=== PATIENT | male | born 1950 | race Asian ===

== ENCOUNTER 2019-05-30 10:18 | Inpatient (IN) | payer OTHER ==
[~2019-05-30] VITALS: Ht 165.1 cm; Wt 78.5 kg
[2019-05-30 10:19] VITALS: BP 152/87
[2019-05-30] MEDS ORDERED: ELIQUIS5 MG PO (10:30)
[2019-05-30] MEDS ORDERED: K-DUR 20 MEQ T20 MEQ PO (10:31)
[2019-05-30] MEDS ORDERED: LISINOPRIL40 MG PO (10:32)
[2019-05-30] MEDS ORDERED: PRAVACHOL40 MG PO (10:33)
[2019-05-30] MEDS ORDERED: PLAVIX 75 MG TA75 M1 PO (10:33)
[2019-05-30] MEDS ORDERED: DOXAZOSIN MESYLA2 MG PO (10:33)
[2019-05-30] MEDS ORDERED: AMLODIPINE BESY10 MG PO (10:33)
[2019-05-30 10:47] LABS: ABSOLUTE NEUTROPHILS 15.9 thou/uL (1.4-8.2); BASOPHILS 0.2 % (0.0-2.0); HEMATOCRIT 41.9 % (42.0-52.0); HEMOGLOBIN 14.1 gm/dL (14.0-18.0); LYMPHOCYTES 4.8 % (24.0-44.0); MCH 29.6 pg (26.0-34.0); MCHC 33.7 g/dL (28.0-37.0); MCV 87.8 fL (80.0-100.0); MONOCYTES 5.1 % (1.0-8.0); PLATELET COUNT 159 thou/uL (150-400); POLYS 89.9 % (36.0-66.0); RBC 4.78 mil/uL (4.50-6.00); RDW 13.9 % (10.5-14.5); WBC 17.7 thou/uL (4.0-11.0)
[2019-05-30 10:56] LABS: CALCIUM 8.4 mg/dL (8.5-10.1); CREATININE 2.9 mg/dL (0.7-1.3)
[2019-05-30 11:02] LABS: ALBUMIN 3.8 g/dL (3.4-5.0); TOTAL BILIRUBIN 0.9 mg/dL (<0.1-1.0); TOTAL PROTEIN 7.2 g/dL (6.4-8.2)
[2019-05-30 11:12] LABS: POTASSIUM 4.9 mmol/L (3.5-5.1)
[2019-05-30 11:22] LABS: URINE BILIRUBIN NEGATIVE (Negative); URINE BLOOD NEGATIVE (Negative); URINE CLARITY CLEAR; URINE COLOR YELLOW; URINE GLUCOSE-RANDOM* NEGATIVE (Negative); URINE KETONES TRACE (Negative); URINE LEUKOCYTES-REFLEX NEGATIVE (Negative); URINE NITRITE-REFLEX NEGATIVE (Negative); URINE PROTEIN (DIPSTICK) 1+ (Negative); URINE SPECIFIC GRAVITY >= 1.030 (1.005-1.035); URINE UROBILINOGEN 0.2 E.U./dl (0.2-1.0)
[2019-05-30 11:33] LABS: AMORPHOUS URATES Moderate /LPF (None Seen); BACTERIA-REFLEX None Seen /HPF (None Seen); HYALINE CASTS 4-10 Moderate /LPF (None Seen); MUCUS 0-3 Light strn/LPF (None Seen); SQUAMOUS 0-3 Few /LPF (0-3); URINE RBC None Seen /HPF (0-2); URINE WBC-REFLEX None Seen /HPF (0-5)
[2019-05-30 13:13] VITALS: BP 149/75
[2019-05-30 13:20] VITALS: BP 149/75
[2019-05-30 13:55] VITALS: BP 176/91
[2019-05-30 14:31] VITALS: BP 162/99
--- NOTE | 2019-05-30 17:15 | NUR ---
PT ARRIVED ON UNIT APPROX 1400 FROM ED. ADMISSION COMPLETED. ASSESSMENT CHARTED. PT A&OX4. ASENCIO IN PLACE. NG TUBE ATTEMPED BUT PT DID NOT TOLERATE WELL, SO ICU CALLED FOR ASSISTANCE; WAITING FOR THEM NOW. NO C/O PAIN, BUT PT OCCASIONALLY GRIMACES AND HOLDS ABDOMEN. STILL NO BM AT THIS TIME. REFUSES PAIN MEDS AT THIS TIME. PT SBA D/T WEAKNESS. WILL CONTINUE TO MONITOR AND FOLLOW POC.
--- NOTE | 2019-05-30 17:54 | NUR ---
ATTEMPTED TO INSERT NG TUBE IN WITH CHARGE NURSE PRESENT, WITH 2 TRIES BOTH UNSUCCESSFUL WITH PT NOT TOLERATING WELL. TIME GIVEN TO PT TO RECOVER. CALLED ICU NURSE FOR ASSISTANCE, NG TUBE INSERTION ATTEMPTED 3 TRIES, ALL TRIES UNSUCCESSFUL DUE TO PT NOT BEING ABLE TO TOLERATE PROCEDURE. WILL GIVE PT TIME TO RECOVER PT WAS UPSET AND FATIGUED. PHYSCICIAN NOTIFIED, ORDERS RECEIVED FOR CHLORASEPTIC THROAT SPRAY, WILL PASS ON TO NOC NURSE REGARDING SITUATION.
[2019-05-30 19:40] VITALS: BP 148/84
[2019-05-30 20:47] LABS: ALBUMIN 3.6 g/dL (3.4-5.0); CALCIUM 7.9 mg/dL (8.5-10.1); CREATININE 2.7 mg/dL (0.7-1.3); POTASSIUM 5.3 mmol/L (3.5-5.1); TOTAL BILIRUBIN 1.5 mg/dL (<0.1-1.0); TOTAL PROTEIN 6.6 g/dL (6.4-8.2)
[2019-05-31 04:10] VITALS: BP 139/71
[2019-05-31 04:59] LABS: HEMATOCRIT 41.5 % (42.0-52.0); MCH 29.8 pg (26.0-34.0); MCHC 33.7 g/dL (28.0-37.0); MCV 88.6 fL (80.0-100.0); RBC 4.68 mil/uL (4.50-6.00); WBC 18.3 thou/uL (4.0-11.0)
--- NOTE | 2019-05-31 06:05 | NUR ---
PT UP TO BSC MULTIPLE TIMES TRYING TO HAVE A BM. ASENCIO IN PLACE AND WORKING WELL. NG 16 POLISH (70 CM) TUBE INSERTED WITH SUCCESS AND IS REMOVING SOME STOMACH FLUIDS. FOLLOWING POC WITH IVF/IVPB. PT DOES NOT LIKE THE NG TUBE AND ASKED IF IT CAN COME OUT, I SPOKE WITH HIM AND TOLD HIM THAT IS UP TO THE DR AND HIMSELF. HOURLY ROUNDING.
--- NOTE | 2019-05-31 06:10 | NUR ---
PT UP TO CHAIR FOR EARLY PART OF THE EVENING, AND THEN MOVED TO THE BED FOR A RESTFUL SLEEP. PT HAS NO COMPLAINTS. OXYGEN AT 5L NC. LABS CAME BACK WITH POTASSIUM AT 5.3 AGAIN. HOURLY ROUNDING.
[2019-05-31 07:54] VITALS: BP 149/89
[2019-05-31 10:10] LABS: CHOLESTEROL 124 mg/dL (<200); HDL CHOLESTEROL 49 mg/dL (>40); LDL CHOLESTEROL 65 mg/dL (<100); TC:HDL 2.5 Ratio (Not establshd); TRIGLYCERIDE 52 mg/dL (<150); VLDL 10 mg/dL (<40)
[2019-05-31] MEDS ORDERED: EMERGEN-C 500500 MG PO (11:00)
[2019-05-31 11:33] VITALS: BP 141/85
--- NOTE | 2019-05-31 14:19 | EKG ---
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[facility] : 1950 Requested By: Chester Palmer Order Number: [id number] MD: Oniel Dee Measurements Intervals [place] Rate: 106 P: 24 SC: 230 QRS: 68 QRSD: 103 T: 241 QT: 323 QTc: 429 Interpretive Statements Sinus tachycardia Prolonged SC interval Probable LVH with secondary repol abnrm No previous ECG available for comparison Electronically Signed On 05-31-2019 14:19:22 CDT by Oniel Dee [email or web address] <ELECTRONICALLY SIGNED> By: Oniel Dee MD, [facility] 05/31/19 1419 D: 090 1030 Oniel Dee MD, FACC /EPI
[2019-05-31 15:38] VITALS: BP 134/86
--- NOTE | 2019-05-31 18:22 | NUR ---
Patient's NG tube is curently under lower intermittent suction- it was draining greenish fluid this am and turned darker this afternoon- it appears the patient has fecal matter draining from his NG (brown solid particles in green fluid). No BM today. Patient's bowel sounds were hypoactive this am changing to absent bowel sounds this evening. Patient has gotten up several times this shift without summoning staff to assist him with his multiple tunes (NG, IV, Mann, O2), despite frequent reminders to call for assistance prior transferring. Patient denies any nausea and vomiting. Abdomen in very firm. NPO. VS stable. Patient is not progressing towards goals.
[2019-05-31 19:49] VITALS: BP 127/73
--- NOTE | 2019-06-01 00:46 | NUR ---
PT REQUESTED ASENCIO TO BE REMOVED. CALLED AND DISCUSSED MATTER WITH FARIBA AVILES. ASENCIO WAS IN DUE TO RETENTION. SPOKE TO PT ABOUT REMOVAL AND RETENTION ISSUES. WILL BLADDER SCAN Q6, IF ABOVE 400ML CALL PHYSCIAN. ASENCIO REMOVED AND PT IS HAPPY. WILL CONTINUE TO MONITOR.
[2019-06-01 04:09] VITALS: BP 147/84
--- NOTE | 2019-06-01 06:18 | NUR ---
BLADDER SCAN SHOWS 106 AT 0600. PT PULLED IV OUT AT 0545 DUE TO PT BEING IMPULSIVE AND NOT WAITING ON STAFF TO ASSIST TO BSC. ALSO PULLED OUT NG TUBE A CERTAIN LENGTH. REPLACED TO 65CM AND INTERMENT SUCTION RESUMED. FOLLOWING POC WITH IVF AND IVPB. HOURLY ROUNDING.
[2019-06-01 07:20] VITALS: BP 138/78
[2019-06-01 08:51] LABS: ABSOLUTE NEUTROPHILS 11.7 thou/uL (1.4-8.2); BASOPHILS 0.1 % (0.0-2.0); LYMPHOCYTES 4.5 % (24.0-44.0); MCH 29.9 pg (26.0-34.0); MCHC 33.5 g/dL (28.0-37.0); MCV 89.2 fL (80.0-100.0); MONOCYTES 8.5 % (1.0-8.0); PLATELET COUNT 112 thou/uL (150-400); POLYS 86.9 % (36.0-66.0); RBC 3.81 mil/uL (4.50-6.00); RDW 14.4 % (10.5-14.5); WBC 13.5 thou/uL (4.0-11.0)
[2019-06-01 08:54] LABS: HEMOGLOBIN 11.4 gm/dL (14.0-18.0)
[2019-06-01 09:11] LABS: CALCIUM 7.8 mg/dL (8.5-10.1); CREATININE 2.5 mg/dL (0.7-1.3); POTASSIUM 4.6 mmol/L (3.5-5.1); TOTAL BILIRUBIN 1.2 mg/dL (<0.1-1.0); TOTAL PROTEIN 6.4 g/dL (6.4-8.2)
[2019-06-01 10:32] VITALS: BP 138/78
--- NOTE | 2019-06-01 11:47 | HC ---
[facility] [place] [address] CONSULTATION Name: ALEX FERRER Room #: 437-P ADM IN M.R.#: [id number] Admission: 05/30/19 Attend Phys: Bimal Caldwell MD Discharge: Date of : 46 Report #: [id number] THIS REPORT FOR: //name// CC: Ron Lyon MD DATE OF SERVICE: 05/31/2019 HISTORY OF PRESENT ILLNESS: The patient is a 69-year-old male, began having nausea, vomiting, abdominal pain last Saturday, became more severe over the weekend. On admission through the Emergency Room, he was noted to have a significantly elevated lipase consistent with acute pancreatitis. Lipase was 8432. The patient and report no previous history of pancreatitis. He denies any significant alcohol use. There have been no new medications. No fevers or chills recently. No chest pain or shortness of breath. He has noted increasing abdominal distention, however, in the last few days and has not had a bowel movement since Saturday. Currently, he is not having any flatus. He has a nasogastric tube in place at this time. On admission, he underwent an ultrasound of the abdomen yesterday, on which the liver was normal in size. No evidence of intrahepatic or extrahepatic ductal dilation. The gallbladder was not well visualized, suggestion of a few tiny gallstones or polyps were noted. This was not well visualized due to obstruction of overlying bowel gas. KUB was performed showing moderate amount of gas throughout the small and large bowel loops, increasing distention of the small bowel measuring 3.4 cm in size. Suggest developing distal mechanical small-bowel obstruction. Nasogastric tube was noted. A CT scan of the abdomen and pelvis shows significant peripancreatic and pancreatic soft tissue stranding and thickening consistent with and concerning for pancreatitis with extensive additional central mesenteric and bilateral paracolic gutter soft tissue stranding. Focal mural thickening of the duodenum was noted with surrounding inflammatory soft tissue stranding concerning for duodenitis. PAST MEDICAL HISTORY: Coronary artery disease, status post stent placement; hypertension; hyperlipidemia and history of prostatitis. ALLERGIES: No known drug allergies. MEDICATIONS ON ADMISSION: Eliquis, potassium chloride, lisinopril, doxazosin, amlodipine, pravastatin and Plavix. REVIEW OF SYSTEMS: As per HPI. [address] [address] CONSULTATION Name: ALEX FERRER Room #: 437-P [facility] IN .R.#: [id number] Admission: 05/30/19 Attend Phys: Bimal Caldwell MD Discharge: Date of : 46 Report #: [id number] SOCIAL HISTORY: Previous history of tobacco use, but none recently. Alcohol minimal. FAMILY HISTORY: Negative for colon cancer. The patient reportedly has a last colonoscopy approximately 4 years ago, which was negative per the patient. PHYSICAL EXAMINATION: VITAL SIGNS: Temperature is 97.9, pulse 85, blood pressure 149/89, respiratory rate is 18. GENERAL: He is alert and oriented x 3, in no acute distress. HEENT: Sclerae nonicteric. Oropharynx clear. Nasogastric tube is in place. There is a darkish bilious material noted in the nasogastric aspirate. Oropharynx is clear. NECK: Supple. CARDIOVASCULAR: Regular rate and rhythm. CHEST: Clear to auscultation anteriorly bilaterally. ABDOMEN: Distended, not tense. Few bowel sounds are noted. He is tender to palpation. EXTREMITIES: No cyanosis, clubbing or edema. LABORATORY DATA: Sodium 131, potassium 5.3, chloride 99, bicarbonate 19, BUN 40, creatinine 2.7, which is down from 2.9, glucose 157 down from 194, AST 48, lipase today is 3140, total bilirubin 1.5 which is up from 0.9, calcium 7.9, alkaline phosphatase 50, ALT is 66, albumin 3.6, lactic acid level yesterday 2.0. Triglyceride level was 52, cholesterol 124. WBC today is 18.3, yesterday 17.7; hemoglobin 14.0; platelet count 137. UA was essentially negative. ASSESSMENT AND PLAN: Acute pancreatitis, suspect etiology may be secondary to gallstones, although there is no evidence of ductal dilation on ultrasound and CT. The patient denies any significant alcohol use. He has been on no new medications. MARGAUX inhibitors are possible causes of pancreatitis, although he has been on this medication for quite some time. His triglyceride levels are normal. Agree with current regimen of IV fluids, bowel rest, NG suction. The patient has, what appears to be, an ileus due to the pancreatitis. He also has duodenitis, likely secondary to the pancreatitis as well. We will add a PPI therapy at this time. Continue to monitor labs closely. The patient is on IV antibiotics as well. We will continue to follow closely. Thank you for allowing me to participate in his care. <ELECTRONICALLY SIGNED> By: Quentin Coles MD 06/01/19 1147 1131 622 Quentin Coles MD /nt
[2019-06-01 12:35] VITALS: BP 143/82
--- NOTE | 2019-06-01 15:51 | NUR ---
ASSESSMENT: CM REVIEWED CHART AND MET WITH PATIENT AND HIS AT THE BEDSIDE. PT WAS ADMITTED WITH PANCREATITIS/ILEUS AND CURRENTLY HAS AN NG. PT LIVES AT HOME WITH HIS IN A HOUSE. PT HAS ONE STEP TO ENTER AND DOES NOT USE STEPS ONCE INSIDE. PT HAS ABOUT 14 STEPS WITH HANDRAILS TO THE BASEMENT FOR LAUNDRY BUT DOES THE LAUNDRY. PT AMBULATES INDEPENDENTLY. PT REPORTS BEING INDEPENDENT WITH ADLS. PT WALKED 500FT MIN ASSIST TODAY. PT REPORTS HAVING HH IN THE PAST AFTER A KNEE SURGERY BUT UNSURE THE AGENCY. CM DISCUSSED ROLE. PT IS HOPEFUL TO RETURN HOME WITH NO NEEDS ONCE MEDICALLY STABLE.
[2019-06-01 16:11] VITALS: BP 139/63
--- NOTE | 2019-06-01 18:16 | NUR ---
Patient appears to become anxious without his family present. Patient walked 500 feet minimum assist with PT. Abdomen slightly less ridgid today. No BM. Patient slowly progressing towards discharge goals.
[2019-06-01 19:45] VITALS: BP 153/89
[2019-06-02] VITALS (14 sets, daily range): BP systolic 119–155; BP diastolic 58–98
--- NOTE | 2019-06-02 04:05 | NUR ---
Pt. has been awake most of the night and can't get comfortable. Very restless on bed, up in the chair, commode and requested to go to toilet. Offered pain med several times to help with discomfort but refused till about 228 he requested pain med. When asked what's bothering him , he stated he just can't get comfortable on the bed with all the tubes connected to him( O2,NG,heart monitor). He verbalized it's not just the same bed he has at home. Fentanyl given IV with some relief. He finally started resting after 329. Maintaining O2 sat in the mid 90's on 2L/NC. He does get short of breath with exertion. Pt. impulsive at times and does not call for help.Bed and chair alarm on. SR- ST PVC's with 1st degree AV blk and occasional paced beats per tele. Voiding per urinal with PVR less than 100ml. Right NG to LIS with greenish dge. Kept NPO except few ice chips. Hypoactive BS , did pass gas x1 while exerting/coughing. No c/o nausea. Will continue to monitor.
[2019-06-02 08:12] LABS: BE(vivo) -7.4 mmol/L (-2 to +3); HCO3 19.1 mmol/L (22.0-26.0); PCO2 42.1 mmHg (35.0-45.0); PO2 64.9 mmHg (80.0-100.0); sO2 90.1 % (92.0-98.0)
[2019-06-02 08:14] LABS: pH 7.274 (7.360-7.450)
[2019-06-02 09:08] LABS: HEMATOCRIT 31.1 % (42.0-52.0); HEMOGLOBIN 10.4 gm/dL (14.0-18.0); MCH 30.3 pg (26.0-34.0); MCHC 33.6 g/dL (28.0-37.0); MCV 90.1 fL (80.0-100.0); RBC 3.45 mil/uL (4.50-6.00); RDW 14.4 % (10.5-14.5); WBC 10.9 thou/uL (4.0-11.0)
[2019-06-02 09:16] LABS: CALCIUM 7.9 mg/dL (8.5-10.1); CREATININE 1.8 mg/dL (0.7-1.3); POTASSIUM 4.6 mmol/L (3.5-5.1)
[2019-06-02 10:34] LABS: BE(vivo) -6.1 mmol/L (-2 to +3); HCO3 20.4 mmol/L (22.0-26.0); PCO2 44.4 mmHg (35.0-45.0); PO2 92.8 mmHg (80.0-100.0); sO2 96.2 % (92.0-98.0)
--- NOTE | 2019-06-02 11:00 | NUR ---
Pt was in room 437, pt was going ICU about 0810am , because pt has more SOB, abnormal ABG ( PH7.27), and pt 's ABD is distended, diffusely tender, pt is awake. DR see pt at bedside, pt starts BIPAP with o2 60% to keep o2sat >94%, RN send pt to ICU,and dive report at bedside.
--- NOTE | 2019-06-02 11:39 | NUR ---
0845-RECEIVED PT FROM FLOOR,ON BIPAP @ .60%.--VW 0905-VALENTINA DUONG & THEE IN TO SEE.PCXR,KUB,EKG DONE.--VW 1005-CALLED ,INFORMED OF EVENTS,TRANSFER TO ICU.--VW 1010-PT VERY CONFUSED,RESTLESS,IMPULSIVE.--VW 1025-ABG'S DONE.--VW 1045- CALLED W CRITICAL VALUE,GENERAL UPDATE.WILL PUT IN ORDERS.--VW 1125- CONSULTED,IN TO SEE PT.--VW 1135- CONSULTED,RETURNED CALL,ORDERS NOTED.--VW
--- NOTE | 2019-06-02 11:57 | NUR ---
Pt TRANSFERRED TO ICU. WILL PLACE ON HOLD AND AWAIT NEW ORDERS TO RESUME WHEN APPROPRIATE
--- NOTE | 2019-06-02 13:53 | NUR ---
ON-GOING ASSESSMENT: PT WAS PLACED ON BIPAP AND MOVED DOWN TO THE ICU. PT STILL HAS IN NG. CM NOTIFIED CM IN ICU.
--- NOTE | 2019-06-02 14:17 | EKG ---
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 : 1950 Requested By: Troy Nichole Order Number: [id number] MD: Angel Vazquez Measurements Intervals [place] Rate: 102 P: 31 [place]: 205 QRS: 57 QRSD: 99 T: 199 QT: 338 QTc: 441 Interpretive Statements Sinus tachycardia Abnormal T, consider ischemia, diffuse leads Compared to ECG 05/30/2019 10:30:12 T-wave abnormality now present Possible ischemia now present First degree AV block no longer present Electronically Signed On 06-02-2019 14:17:21 CDT by Angel Vazquez [email or web address] <ELECTRONICALLY SIGNED> By: Angel Vazquez MD 06/02/19 1417 0848 0848 Angel Vazquez MD /EPI
--- NOTE | 2019-06-02 14:30 | NUR ---
1410-MAINT IVF OPEN WIDE PER .--VW
[2019-06-02 15:11] LABS: BE(vivo) -3.7 mmol/L (-2 to +3); HCO3 21.9 mmol/L (22.0-26.0); PCO2 41.8 mmHg (35.0-45.0); PO2 114.4 mmHg (80.0-100.0); pH 7.337 (7.360-7.450); sO2 97.9 % (92.0-98.0)
[2019-06-02 15:15] LABS: CALCIUM 7.4 mg/dL (8.5-10.1); CREATININE 1.9 mg/dL (0.7-1.3); POTASSIUM 4.2 mmol/L (3.5-5.1)
[2019-06-02 15:17] LABS: AMYLASE 187 U/L (25-115); LIPASE 603 U/L (73-393)
--- NOTE | 2019-06-02 18:11 | NUR ---
AFTER MUCH BACK & FORTH, PT TAKEN OFF BIPAP,SUPPOSITORY GIVEN.PT UP TO BS W ASSIST X2 W O2 & GAIT BELT.PT SAT ON BSC X 30 MIN'S W RN AT BEDSIDE ENTIRE TIME.PASSED SOME GAS,NO BM.BACK TO BED.PT EXTREMELY VASQUES,SOB p GETTING BACK TO BED (ASSIST X2 B/4).O2 SATS DROPPED W MOVEMENT TO ~.77%. PT PLACED BACK ON BIPAP W IMMED RETURN OF SAT TO HIGH 90'S. OFF BIPAP ~40 MINUTES. GOOD MOUTH CARE GIVEN,USING SWABS ON OWN.FAMILY BACK IN BRIEFLY.PT CURRENTLY ASLEEP. PT HAS GONE INTO PACED RHYTHM W ANY STRAINING (INSTRUCTED PT NOT TO STRAIN WHEN TRYING TO HAVE BM) & W MOVEMENT.--VW
--- NOTE | 2019-06-02 18:47 | NUR ---
Denies pain.Feeling a little better since passing gas.Still restless at times.Care turned over to oncoming RN.--VW
[2019-06-03] VITALS (17 sets, daily range): BP systolic 125–157; BP diastolic 58–88
[2019-06-03 06:03] LABS: HEMATOCRIT 29.6 % (42.0-52.0); HEMOGLOBIN 9.8 gm/dL (14.0-18.0); MCV 90.9 fL (80.0-100.0); PLATELET COUNT 146 thou/uL (150-400); RBC 3.26 mil/uL (4.50-6.00); RDW 14.2 % (10.5-14.5); WBC 8.9 thou/uL (4.0-11.0)
[2019-06-03 06:22] LABS: ALBUMIN 2.8 g/dL (3.4-5.0); CALCIUM 7.6 mg/dL (8.5-10.1); CREATININE 1.9 mg/dL (0.7-1.3); PHOSPHORUS 2.1 mg/dL (2.5-4.9); POTASSIUM 3.7 mmol/L (3.5-5.1)
[2019-06-03 08:00] LABS: CALCIUM 7.8 mg/dL (8.5-10.1); CREATININE 1.9 mg/dL (0.7-1.3); MAGNESIUM 2.6 mg/dL (1.8-2.4); POTASSIUM 3.7 mmol/L (3.5-5.1)
[2019-06-03 08:38] LABS: ABSOLUTE NEUTROPHILS 6.9 thou/uL (1.4-8.2); NUCLEATED RBCS 1 /100WBC
[2019-06-03 08:39] LABS: ANISOCYTOSIS SLIGHT
--- NOTE | 2019-06-03 14:30 | NUR ---
PT TRANSFERRED TO ICU. DUE TO CHANGE IN STATUS, NEED NEW O.T. ORDERS IF/WHEN APPROPRIATE.
[2019-06-03] MEDS ORDERED: PREDNISONE 10 M10 MG PO (14:46)
[2019-06-03] MEDS ORDERED: COLCHICINE0.6 MG PO (14:46)
--- NOTE | 2019-06-03 16:11 | NUR ---
MET WITH PT, SPOUSE AND DTR. PT WITH NGT, UP IN CHAIR AT PRESENT. SPOUSE REQUESTING CM CALL PT'S EMPLOYER REGARDING TIME OFF VERIFICATION. SPOKE WITH TAMIE AT [facility] AND PROVIDED ADMIT DATE AND STILL IN HOSPITAL AND GAVE HER CM CONTACT FOR ANY FUTURE NEEDS.
[2019-06-04] VITALS (11 sets, daily range): BP systolic 135–148; BP diastolic 67–80
[2019-06-04 05:40] LABS: ALBUMIN 2.7 g/dL (3.4-5.0); CALCIUM 8.1 mg/dL (8.5-10.1); CREATININE 1.9 mg/dL (0.7-1.3); PHOSPHORUS 2.8 mg/dL (2.5-4.9); POTASSIUM 4.2 mmol/L (3.5-5.1)
[2019-06-04 05:48] LABS: HEMATOCRIT 29.8 % (42.0-52.0); MCH 30.4 pg (26.0-34.0); MCHC 33.6 g/dL (28.0-37.0); MCV 90.5 fL (80.0-100.0); RBC 3.3 mil/uL (4.50-6.00); RDW 14.1 % (10.5-14.5); WBC 8.5 thou/uL (4.0-11.0)
--- NOTE | 2019-06-04 17:08 | NUR ---
CONSULTED TO PLACE A LINE FOR THIS PATIENT PLANNING TO GET TPN. ORDER BY DR. DUNAWAY FOR CENTRAL LINE. THE PATIENT IS REQUESTING A PICC LINE INSTEAD. DUE TO KIDNEY FUNCTION DR. FAITH WAS NOTIFIED BY CARLOTTA LAMINATOR AND CONFIRMED DR. FAITH IS OK WITH PICC PLACEMENT FOR TPN. PATIENT CONSENTS TO PICC PLACEMENT. DISCUSSED BENIFITS AND RISKS FOR INFECTION AND DVT AND HE VERBALIZED UNDERSTANDING. THE RIGHT UPPER ARM BASILIC WAS WIDLEY PATENT. A #5F TRIPLE LUMEN POWER PICC WAS PLACED PER HOSPITAL POLICY AFTER A BEDSIDE TIMEOUT WAS COMPLETED. PICC WAS TRIMMED TO 40CM AND ADVANCED WITHOUT DIFFICULTY. A STAT CHEST XRAY WAS ORDERED TO CONFIRM TIP PLACEMENT. RADIOLOGIST READING REPORT CONFIRMED LINE AT THE [facility] AND IN PROPER PLACEMENT FOR USE. CARLOTTA NORIEGA NOTIFIED LINE IS RELEASED FOR USE
--- NOTE | 2019-06-04 17:46 | NUR ---
PATIENT REMAINS A&O X 4, PLEASANT AND COOPERATIVE WITH CARES. DENIES PAIN THIS SHIFT. SOB AND AUDIBLE WHEEZES NOTED WITH EXERCISE. PATIENT UP AND WALKED AROUND THE ENTIRE UNIT WITH PHYSICAL THERAPY. ABDOMIN IS STILL DISTENDED. PATIENT HAD 3 WATERY BM THIS SHIFT. NO FURTHER CONCERNS AT THIS TIME. WILL CONTINUE TO MONITOR AND CARE PER PLAN OF CARE.
[2019-06-04 23:06] LABS: IgG 841 mg/dL (700-1600)
[2019-06-05] VITALS (12 sets, daily range): BP systolic 131–164; BP diastolic 63–80
[2019-06-05 05:34] LABS: HEMATOCRIT 28.2 % (42.0-52.0); HEMOGLOBIN 9.4 gm/dL (14.0-18.0); MCH 30.2 pg (26.0-34.0); MCHC 33.3 g/dL (28.0-37.0); MCV 90.6 fL (80.0-100.0); RBC 3.11 mil/uL (4.50-6.00); RDW 14.3 % (10.5-14.5); WBC 8.6 thou/uL (4.0-11.0)
[2019-06-05 06:09] LABS: DIRECT BILIRUBIN 0.1 mg/dL (<0.1-0.3)
[2019-06-05 06:20] LABS: ALBUMIN 2.4 g/dL (3.4-5.0); CALCIUM 7.6 mg/dL (8.5-10.1); CREATININE 1.5 mg/dL (0.7-1.3); MAGNESIUM 2.2 mg/dL (1.8-2.4); PHOSPHORUS 2.3 mg/dL (2.5-4.9); POTASSIUM 3.3 mmol/L (3.5-5.1); TOTAL BILIRUBIN 0.4 mg/dL (<0.1-1.0)
--- NOTE | 2019-06-05 08:35 | HC ---
[facility] [place] [address] CONSULTATION Name: ALEX FERRER Room #: 237-P ADM IN M.R.#: [id number] Admission: 05/30/19 Attend Phys: Bimal Caldwell MD Discharge: Date of : 46 Report #: [id number] THIS REPORT FOR: //name// CC: Judy Lyon DATE OF SERVICE: 06/03/2019 REASON FOR CONSULTATION: Acute kidney injury and metabolic acidosis. REASON FOR PRESENTATION: Abdominal pain. HISTORY OF PRESENT ILLNESS: A 69-year-old who began to have abdominal pain on Saturday. This had progressed mandating the patient to visit the Emergency Room. He has associated abdominal bloating, nausea and vomiting. No previous similar episodes. He denies alcohol abuse. He was found to have significantly elevated lipase, white blood cells. He was also found to have an acute kidney injury. He had significant peripancreatic and pancreatic soft tissue stranding consistent with pancreatitis. The patient's creatinine on presentation was 2.9 on 05/30. It has trended down and leveled at around 1.8 as of 06/02 and has gone up slightly to 1.9 as of today. He does not know of any previous kidney problems. The patient's condition deteriorated yesterday with development of metabolic acidosis and he was transferred to the ICU to further evaluate. His lactate was within normal range. PAST MEDICAL HISTORY: 1. Diabetes mellitus. 2. Hypertension. 3. Hyperlipidemia. 4. Coronary artery disease. 5. Prostatitis. ALLERGIES: None. MEDICATIONS: On admission: 1. Eliquis. 2. Lisinopril. 3. Doxazosin. 4. Amlodipine. 5. Pravastatin and Plavix. SOCIAL HISTORY: Denies alcohol abuse. FAMILY HISTORY: No reported kidney disease. [facility] [address] [place] [address] CONSULTATION Name: ALEX FERRER Room #: 237-P [facility].#: [id number] Admission: 05/30/19 Attend Phys: Bimal Caldwell MD Discharge: Date of : 46 Report #: [id number] REVIEW OF SYSTEMS: GENERAL: Significant for weakness and fatigue. CARDIOVASCULAR: No chest pain or palpitation. PULMONARY: No cough or hemoptysis. GASTROINTESTINAL: As per the history of present illness. GENITOURINARY: No frequency, no urgency. PHYSICAL EXAMINATION: VITAL SIGNS: The patient is febrile with a temperature of 38.1, blood pressure is 125/65. HEAD AND NECK: No jugular venous distention. CHEST: No crackles. CARDIOVASCULAR: No rub. ABDOMEN: Severely distended with diffuse tenderness. EXTREMITIES: Lower extremities, no edema. LABORATORY DATA: From today revealed that the patient has a sodium of 150, potassium of 3.7, BUN is 36, creatinine is 1.9. Phosphorus is mildly depressed at 2.1. Lipase from yesterday was down to 600. Blood gases showing that his pH is up to 7.3. ASSESSMENT, IMPRESSION AND PLAN: 1. Acute pancreatitis 2. Acute kidney injury. 3. Hypernatremia. 4. Fever in a patient with severe pancreatitis. 5. Surgical and GI team are following. 6. Needs aggressive intravenous hydration. Metabolic acidosis is resolving. I will reformulate his IV fluid to address his hypernatremia. 7. Avoid further diuresis. 8. Monitor volume status. 9. Continue to address his pancreatitis, GI team and surgical team. <ELECTRONICALLY SIGNED> By: Chele Ramos MD 06/05/19 0835 0747 0830 Chele Ramos MD /nt
--- NOTE | 2019-06-05 09:06 | NUR ---
Recommend to discontinue D5 fluids. Rec tpn 5%AA, 15%dex, 2.9% lipids at goal rate 75ml/hr.
--- NOTE | 2019-06-05 15:31 | NUR ---
FOLLOWING FOR DC PLANNING. CLINICAL INFO REVIEWED. NGT REMAINS, PASSED FLATUS AND HAD STOOL. STARTING TPN TODAY. WALKED 200 FT WITH P.T. AND WILL LIKELY HAVE NO DC NEEDS WHEN MEDICALLY STABLE TO DISCHARGE.
--- NOTE | 2019-06-05 18:39 | NUR ---
ASSESMENTS AND INTERVENTIONS DOCCUMENTED.PATIENT ALERT AND ORIENTED X4 PATIENT WORKED WITH PT AND OT. PATIENT WAS SUCCESSFULLY TRANSFERED TO THE CHAIR. PATIENT COMPLAINING OF PAIN RELATED TO GOUT. FAMILY AND PATIENT EDUCATED ON PLAN OF CARE. PATIENT HAVING LOOSE BM. TRANSFER ORDERES RECIEVED PER DR. DUNAWAY. PATIENT NG TUBE CLAMPED TO CHECK FOR RESIDUAL [place]. 6 HOURS LATER, RERSIDUAL OF 0. DR. KINGSTON NOTIFIED. ORDERS GIVEN TO REMOVE NG TUBE. WAITING FOR CONFIRMATION FROM GI BEFORE REMOVING NG TUBE.
--- NOTE | 2019-06-05 22:49 | NUR ---
PATIENT PUT BACK ON OXYGEN TWO LITERS VIA NASAL CANNULA FOR OXYGEN SATURATION FALLING INTO HIGH 80'S.
[2019-06-06] VITALS (7 sets, daily range): BP systolic 144–174; BP diastolic 71–93
--- NOTE | 2019-06-06 03:00 | NUR ---
PATIENT IS ADVANCING SLOWLY IN HIS CARE PLAN. VITAL SIGNS STABLE WITH PATIENT HAVING COMPLAINTS OF GOUT PAIN THROUGHOUT SHIFT. NURSE RECEIVED ORDERS FOR IV PAIN MEDICATION AND GOUT MEDICATION WHICH WORKED TO LIMITED EFFECT. FULLY ORIENTED, PATIENT IS ABLE TO CALL APPROPRIATELY FOR NEEDS. PATIENT HAD TO BE PLACED BACK ON LOW LEVEL OXYGEN DUE TO SATURATIONS IN HIGH 80'S. NURSE RECEIVED OK FROM GI TO REMOVE PATIENTS NG TUBE, START TPN AND ADVANCE DIET TO CLEAR LIQUIDS. PATIENT DID COMPLAIN OF MILD NAUSEA AFTER DRINKING WATER AND WAS TREATED EFFECTIVELY. UP MULTIPLE TIMES DURING SHIFT WITH ASSISTANCE INCIDENT FREE. PATIENT IS CONSIDERED A HIGH FALL RISK. POSSIBLE TRANSFER OFF ICU BEFORE SHIFT CHANGE. CONTINUE PLAN OF CARE.
[2019-06-06 05:15] LABS: HEMATOCRIT 28.6 % (42.0-52.0); HEMOGLOBIN 9.5 gm/dL (14.0-18.0); MCHC 33.1 g/dL (28.0-37.0); MCV 90.6 fL (80.0-100.0); RBC 3.15 mil/uL (4.50-6.00); WBC 11.5 thou/uL (4.0-11.0)
[2019-06-06 05:21] LABS: CALCIUM 7.9 mg/dL (8.5-10.1); CREATININE 1.2 mg/dL (0.7-1.3); MAGNESIUM 1.9 mg/dL (1.8-2.4); PHOSPHORUS 2.6 mg/dL (2.5-4.9); POTASSIUM 3.9 mmol/L (3.5-5.1)
--- NOTE | 2019-06-06 07:21 | NUR ---
Pt. transfered to the unit from icu. He is alert and oriented and c/o chronic generalized gout pain (see emar) with some relief noted. No other complaints offered.
--- NOTE | 2019-06-06 19:50 | NUR ---
PATIENT EXPERIENCING GOUT PAIN IN RIGHT WRIST / HAND AND KNEE THIS AM. REQUESTED COLCHICINE Q8. RECIEVED COLCHICINE AND UP TO CHAIR THIS AFTERNOON AND HAD CHICKEN BROTH, JELLO, POPSICKEL WITH NO NAUSEA. TWO LIQUID BM'S THIS AFTERNOON. FAMILY AT BEDSIDE THIS AFTERNOON AND PATIENT EXPRESSING NICE SENSE OF HUMOR WITH STAFF AND FAMILY. XRAY OF HAND THIS AFTERNOON.
[2019-06-07] VITALS (7 sets, daily range): BP systolic 133–190; BP diastolic 78–101
[2019-06-07 03:45] LABS: URINE BILIRUBIN NEGATIVE (Negative); URINE BLOOD 1+ (Negative); URINE CLARITY CLEAR; URINE COLOR YELLOW; URINE GLUCOSE-RANDOM* NEGATIVE (Negative); URINE KETONES NEGATIVE (Negative); URINE LEUKOCYTES-REFLEX NEGATIVE (Negative); URINE NITRITE-REFLEX NEGATIVE (Negative); URINE PROTEIN (DIPSTICK) TRACE (Negative); URINE UROBILINOGEN 0.2 E.U./dl (0.2-1.0)
[2019-06-07 03:55] LABS: BACTERIA-REFLEX None Seen /HPF (None Seen); CASTS None Seen /LPF (None Seen); CRYSTALS None Seen /LPF (None Seen); MUCUS None Seen strn/LPF (None Seen); SQUAMOUS None Seen /LPF (0-3); URINE RBC 0-2 Rare /HPF (0-2); URINE WBC-REFLEX None Seen /HPF (0-5)
--- NOTE | 2019-06-07 04:02 | NUR ---
PATIENT IS ALERT AND ORIENTED. PATIENT IS UP TIMES ONE. PATIENT IS A-PACED ON TELE. PATIENT IS ON TPN. Q6H ACCUCHECKS. PATIENT BLOOD PRESSURE IS TREATED WITH MEDICATION. PATIENT TEMP WANT TREATED WITH TYLENOL. PATIENT HAS A ASENCIO. PATIENTS LBM WAS THE 21ST. PATIENTS PAIN IMPROVES WITH MEDICATION. PATIENT IS ON ROOM AIR. PATIENT IS RESTING COMFORTABLY IN BED. WCM. PATIENT IS NOT PROGRESSING TO GOALS.
[2019-06-07 05:18] LABS: BE(vivo) -0.4 mmol/L (-2 to +3); HCO3 22.3 mmol/L (22.0-26.0); sO2 92.9 % (92.0-98.0)
[2019-06-07 05:58] LABS: CALCIUM 8.1 mg/dL (8.5-10.1); CREATININE 1.4 mg/dL (0.7-1.3); MAGNESIUM 1.6 mg/dL (1.8-2.4); PHOSPHORUS 1.5 mg/dL (2.5-4.9); POTASSIUM 3.1 mmol/L (3.5-5.1)
[2019-06-08 03:22] VITALS: BP 160/87
[2019-06-08 06:12] LABS: HEMATOCRIT 28.5 % (42.0-52.0); HEMOGLOBIN 9.6 gm/dL (14.0-18.0); MCH 29.9 pg (26.0-34.0); MCHC 33.7 g/dL (28.0-37.0); MCV 88.7 fL (80.0-100.0); PLATELET COUNT 148 thou/uL (150-400); RBC 3.22 mil/uL (4.50-6.00); RDW 14.2 % (10.5-14.5); WBC 14.3 thou/uL (4.0-11.0)
[2019-06-08 06:27] LABS: CALCIUM 7.8 mg/dL (8.5-10.1); CREATININE 1.2 mg/dL (0.7-1.3); MAGNESIUM 1.9 mg/dL (1.8-2.4); PHOSPHORUS 3.1 mg/dL (2.5-4.9); POTASSIUM 3.1 mmol/L (3.5-5.1)
[2019-06-08 07:07] VITALS: BP 165/87
--- NOTE | 2019-06-08 08:20 | NUR ---
Pt. slept intermittently during the night. Requested pain med around 0312 for sore right hand ,feet and left knee with some relief. Tolerating room air well with no respiratory distress. He has been calm and free of anxiety. Bed alarm on for safety. Refused SCD's due to gout pain in lower legs.TPN and IVF infusing and remains on clear liquids diet. No nausea or vomiting. No bm this shift but stated passing gas. Making progress towards care plan goals.
[2019-06-08 09:00] LABS: ABSOLUTE NEUTROPHILS 12.7 thou/uL (1.4-8.2); PLATELET ESTIMATE NORMAL
[2019-06-08 11:23] VITALS: BP 138/70
[2019-06-08 15:47] VITALS: BP 116/65
--- NOTE | 2019-06-08 19:41 | NUR ---
Assumed care approx. 0700 this AM. TPN, IV abx, fluids, oliva catheter and PICC line all dc'd per Dr. Humphrey. Patient started on a regular diet and ate 100% of meals with slight bloating noted- 3 BM's today. Bowel sounds were hypoactive this morning, but noted to be active later in the shift. Patient was refusing pain medications all shift for gout pain, although his pain was severe. Peripheral IV placed by IV team. Patient up to chair this afternoon. Family updated at bedside-questions and concerns addressed. Patient progressing toward plan of care.
[2019-06-09 03:40] VITALS: BP 140/64
[2019-06-09 06:05] LABS: CALCIUM 8.1 mg/dL (8.5-10.1); CREATININE 1.2 mg/dL (0.7-1.3); MAGNESIUM 1.8 mg/dL (1.8-2.4); PHOSPHORUS 4.2 mg/dL (2.5-4.9); POTASSIUM 3.6 mmol/L (3.5-5.1)
[2019-06-09 07:59] VITALS: BP 149/60
--- NOTE | 2019-06-09 08:08 | NUR ---
Pt. stated he slept fair during the night. Tolerating room air well with no respiratory distress. Right hand , feet and left knee gout pain but denies need for pain med.Verbalized swelling has gone down and he can move a little better. Tolerated regular diet with no nausea or vomiting. Had liquid bm last night and soft bm this am. Voided per urinal with zero PVR. Bed alarm for safety and he calls appropriately. Making progress towards care plan goals.
[2019-06-09] MEDS ORDERED: CEFDINIR300 MG PO (08:09)
[2019-06-09] MEDS ORDERED: PANTOPRAZOLE SO40 M1 PO (08:10)
[2019-06-09 11:38] VITALS: BP 116/67
--- NOTE | 2019-06-09 13:02 | NUR ---
ON-GOING ASSESSMENT: PT HAS ORDERS TO DISCHARGE HOME TODAY AND IS NEEDING A FWW. CM MET WITH PATIENT AT THE BEDSIDE AND HAS NO PREFERENCE OF PROVIDER. CM REACHED OUT TO [facility] WHO STATES THEY CAN ISSUE PATIENT A WALKER. CM TOOK SCRIPT FOR WALKER TO [facility] AND THEY WILL DELIVER IT TO PATIENTS ROOM. CM NOTIFIED BEDSIDE RN WELL PT. PT HAS TRANSPORTATION HOME AND DENIES FURTHER NEEDS FROM CM.
[2019-06-09 13:14] VITALS: BP 116/67
--- NOTE | 2019-06-09 14:03 | NUR ---
Assumed care approx. 0700 this AM. VSS- no signs of distress. Patient reporting he feels much better this AM and ready to be discharged. Low fat diet education given by Dyana Clarke NP. Discharge packet, prescriptions and info on scripts explained to patient and patient's daughter. Patient signed medicare rights form. Questions and concerns answered. Walker given to patient before discharge. IV and telemetry dc'd. Patient left by wheelchair at 1405 with transporter and patient's daughter.
[2019-06-09 14:07] VITALS: BP 116/67
--- NOTE | 2019-06-09 15:35 | NUR ---
PT WAS IN GOOD SPIRITS WHEN HE FOUND OUT HE WAS TO BE DISCHARGED TODAY. PATIENT EDUCATION WAS GIVEN TO HIM AND HIS DAUGHTER. HE SEEMS TO HAVE A STRONG SUPPORT SYSTEM IN PLACE FOR DISCHARGE.
--- NOTE | 2019-06-09 15:52 | NUR ---
I have reviewed the student's documentation.
--- NOTE | 2019-06-10 12:49 | NUR ---
Call back rec'd from the pt's Christy with questions about pt's FMLA paperwork from his employer. Manager Primary Care encouraged her to make a f/u appt with the pt's pcp right away as their office will need to assist with completion of his FMLA papers. She will call them for an appt today. She is familiar with the process but wanted to make sure the hospital didn't need to sign anything.
== END 2019-06-09 14:05 | disposition home or self-care (01) | DRG 438 ==
LOC: ER 10:18 → EROBS 12:53 → ICU 12:53 → 4S 12:53 → ICU 06-02 08:32 → 3W 06-06 05:45 → ENTRNSPT 06-09 13:58 → EDTRNSPTSTS 06-09 14:00 → 3W 06-09 14:05
PROVIDERS: Emergency Medicine; Hospitalist; Internal Medicine Gastroenterology; Internal Medicine Pulmonary Disease; Nurse Practitioner; Nurse Practitioner Acute Care; Surgery; ADMIT Hospitalist
PROC: 0D9670Z Drainage of Stomach with Drainage Device, Via Natural or Artificial Opening (ICD-10-PCS; 2019-05-30)
PROC: 5A09357 Assistance with Respiratory Ventilation, Less than 24 Consecutive Hours, Continuous Positive Airway Pressure (ICD-10-PCS; 2019-06-02)
PROC: 5A09357 Assistance with Respiratory Ventilation, Less than 24 Consecutive Hours, Continuous Positive Airway Pressure (ICD-10-PCS; 2019-06-03)
PROC: 02HV33Z Insertion of Infusion Device into Superior Vena Cava, Percutaneous Approach (ICD-10-PCS; principal; 2019-06-04)
DX: K85.10 Biliary acute pancreatitis without necrosis or infection (principal); N17.0 Acute kidney failure with tubular necrosis; J96.01 Acute respiratory failure with hypoxia; R65.11 Systemic inflammatory response syndrome (SIRS) of non-infectious origin with acute organ dysfunction; R18.8 Other ascites; K56.7 Ileus, unspecified; E87.0 Hyperosmolality and hypernatremia; E87.2 Acidosis; E87.6 Hypokalemia; I25.10 Atherosclerotic heart disease of native coronary artery without angina pectoris; M10.9 Gout, unspecified; E78.5 Hyperlipidemia, unspecified; R33.9 Retention of urine, unspecified; I12.9 Hypertensive chronic kidney disease with stage 1 through stage 4 chronic kidney disease, or unspecified chronic kidney disease; N18.9 Chronic kidney disease, unspecified; R73.9 Hyperglycemia, unspecified; K86.1 Other chronic pancreatitis; K29.80 Duodenitis without bleeding; I48.2 Chronic atrial fibrillation; Z95.5 Presence of coronary angioplasty implant and graft; Z87.891 Personal history of nicotine dependence
CPT/HCPCS: 10078; 10100; 10879; 27000

== ENCOUNTER 2019-06-18 15:04 | Inpatient (IN) | payer OTHER ==
[~2019-06-18] VITALS: Ht 167.6 cm; Wt 78.3 kg
[~2019-06-18 15:04] MED LIST: AMLODIPINE BESY10 MG PO; CEFDINIR300 MG PO; COLCHICINE0.6 MG PO; DOXAZOSIN MESYLA2 MG PO; ELIQUIS5 MG PO; K-DUR 20 MEQ T20 MEQ PO; LISINOPRIL40 MG PO; PANTOPRAZOLE SO40 M1 PO; PLAVIX 75 MG TA75 M1 PO; PRAVACHOL40 MG PO; PREDNISONE 10 M10 MG PO; VITAMIN C500 M1 PO
[2019-06-18 15:10] VITALS: BP 117/61
[2019-06-18 15:30] LABS: URINE BILIRUBIN NEGATIVE (Negative); URINE BLOOD NEGATIVE (Negative); URINE CLARITY CLEAR; URINE COLOR YELLOW; URINE GLUCOSE-RANDOM* NEGATIVE (Negative); URINE KETONES NEGATIVE (Negative); URINE LEUKOCYTES-REFLEX NEGATIVE (Negative); URINE NITRITE-REFLEX NEGATIVE (Negative); URINE PROTEIN (DIPSTICK) TRACE (Negative); URINE SPECIFIC GRAVITY <= 1.005 (1.005-1.035); URINE UROBILINOGEN 0.2 E.U./dl (0.2-1.0)
[2019-06-18 16:56] LABS: HEMATOCRIT 30.9 % (42.0-52.0); HEMOGLOBIN 10.1 gm/dL (14.0-18.0); MCH 28.9 pg (26.0-34.0); MCHC 32.7 g/dL (28.0-37.0); MCV 88.4 fL (80.0-100.0); PLATELET COUNT 237 thou/uL (150-400); RBC 3.49 mil/uL (4.50-6.00); RDW 14.1 % (10.5-14.5); WBC 27.2 thou/uL (4.0-11.0)
[2019-06-18 17:06] LABS: CALCIUM 8.3 mg/dL (8.5-10.1); POTASSIUM 5.5 mmol/L (3.5-5.1)
[2019-06-18 17:13] LABS: DIRECT BILIRUBIN 0.2 mg/dL (<0.1-0.3); TOTAL BILIRUBIN 0.8 mg/dL (<0.1-1.0)
[2019-06-18 17:22] LABS: ABSOLUTE NEUTROPHILS 26.7 thou/uL (1.4-8.2)
[2019-06-18 17:23] LABS: ANISOCYTOSIS 1+
[2019-06-18 17:52] LABS: URINE SODIUM-RANDOM* 14 mmol/L
[2019-06-18 18:02] LABS: URINE CREATININE-RANDOM* <13 mg/dL
[2019-06-18 18:32] VITALS: BP 110/60
[2019-06-18 18:39] VITALS: BP 131/70; BP 132/63
[2019-06-18 18:55] LABS: ALBUMIN 2.8 g/dL (3.4-5.0); TOTAL PROTEIN 6.4 g/dL (6.4-8.2)
[2019-06-18 19:31] LABS: TSH 0.012 uIU/mL (0.358-3.740)
[2019-06-18 20:00] VITALS: BP 73/46
[2019-06-18 23:55] VITALS: BP 116/55
[2019-06-19 00:35] VITALS: BP 129/60
--- NOTE | 2019-06-19 03:59 | NUR ---
PT NEW ADMIT , TIME OF ARRIVAL 1900. FAMILY PRESENT AT BEDSIDE AT THE TIME OF ARRIVAL. ALERT AND ORIENTED. RATES ABDOMINAL PAIN 4/10 THAT HAS DECLINED PROGRESSIVELY. ABDOMEN DISTENDED, ROUND AND FIRM. BOWEL SOUNDS ABSENT. NO FEVER.VITALS STABLE. PT CURRENTLY STABLE AND ASSESSMENTS DOCUMENTED. PENDING GI AND SURGERY CONSULT IN AM.
[2019-06-19 04:22] VITALS: BP 116/55
[2019-06-19 05:56] LABS: CALCIUM 8.2 mg/dL (8.5-10.1); CREATININE 2.1 mg/dL (0.7-1.3); MAGNESIUM 1.5 mg/dL (1.8-2.4)
[2019-06-19 06:01] LABS: HEMATOCRIT 28.9 % (42.0-52.0); HEMOGLOBIN 9.5 gm/dL (14.0-18.0); MCH 29.4 pg (26.0-34.0); MCV 89.1 fL (80.0-100.0); RBC 3.24 mil/uL (4.50-6.00); RDW 14.2 % (10.5-14.5)
[2019-06-19 06:08] LABS: POTASSIUM 4.2 mmol/L (3.5-5.1)
[2019-06-19 07:36] VITALS: BP 93/51
[2019-06-19 11:38] VITALS: BP 138/70
--- NOTE | 2019-06-19 11:58 | NUR ---
Chart reviewed and case discussed with the care team. Pt known to cm from recent dc home on 06/09/19. Pt was provided a FWW for home use. He lives with his and was active and indep prior to admission. He has one step to enter their home and can stay on the main level. takes care of basement laundry. Supportive family. No hh recently. Pt admitted with pancreatitis and pseudocyst. Workup in progress. No cm needs identified at this time. Will have nursing ask for therapy evals if indicated and follow along should dc planning needs arise.
[2019-06-19] MEDS ORDERED: CEFDINIR300 MG PO (12:00)
[2019-06-19] MEDS ORDERED: IRON325 PO (12:01)
--- NOTE | 2019-06-19 15:57 | NUR ---
ASSESSMENT CHARTED. VSS. PT DENIED HAVING PAIN OR DISCOMFORT. UP IN THE CHAIR THIS SHIFT. AMBULATED X3. TOLERETED CLEAR LIQUID DIET. NO CONCERNS AT THIS TIME. WILL CONTINE TO MONITOR.
[2019-06-19 20:45] VITALS: BP 125/69
[2019-06-20] VITALS (7 sets, daily range): BP systolic 94–147; BP diastolic 52–71
[2019-06-20 05:48] LABS: HEMATOCRIT 26.9 % (42.0-52.0); HEMOGLOBIN 8.8 gm/dL (14.0-18.0); MCH 29.5 pg (26.0-34.0); MCHC 32.6 g/dL (28.0-37.0); MCV 90.5 fL (80.0-100.0); RBC 2.97 mil/uL (4.50-6.00); RDW 14.3 % (10.5-14.5); WBC 13.4 thou/uL (4.0-11.0)
[2019-06-20 06:13] LABS: CALCIUM 8.4 mg/dL (8.5-10.1); CREATININE 1.9 mg/dL (0.7-1.3); MAGNESIUM 2.6 mg/dL (1.8-2.4); POTASSIUM 3.7 mmol/L (3.5-5.1)
--- NOTE | 2019-06-20 06:29 | NUR ---
ASSUME CARE 1900. PT STABLE BUT RUNS TEMP SOMETIMES. TYLENOL FOR FEVER RELIEF. MILD PAIN IN ABDOMEN INDICATED. ABDOMEN IS DISTENDED AND FIRM. fREQUENT DIARRHEA NOTED LARGE AMOUNT GREEN BILE LOOKING LIQUID STOOL. ASSESSMENT CHARTED. PROGRESSING SLOWLY WITH POC. PLAN IS TO CONTINUE TO TREAT WITH VANC AND ZOSYN. WILL CONNTINUE TO MONITOR
--- NOTE | 2019-06-20 10:41 | HC ---
[facility] [place] [address] CONSULTATION Name: ALEX FERRER Room #: 205-P ADM IN M.R.#: [id number] Admission: 06/18/19 Attend Phys: Chuck Garcia MD Discharge: Date of : 48 Report #: [id number] THIS REPORT FOR: //name// CC: Chuck Lyon DATE OF SERVICE: 06/19/2019 ENDOCRINE CONSULTATION NOTE CONSULTING PHYSICIAN: Dr. Garcia. REASON FOR CONSULTATION: Hyperthyroidism. HISTORY OF PRESENT ILLNESS: This is a 69-year-old male patient whose medical background is significant for coronary artery disease, hypertension, hyperlipidemia, who has had the recent hospitalization for pancreatitis a few weeks ago. The patient returned to the hospital yesterday after experiencing more symptoms of abdominal pain, abdominal distention and fever and raised the concern of recurring or worsening pancreatitis. The patient was admitted for further monitoring and management. When questioned, the patient denied having had any specific or documented history of thyroid disease in the past. He has not had issues with palpitations, tremors, unexplained body weight changes, excessive sweating or major sleep difficulties lately. He is not aware a family history of thyroid disease. The patient is hypertensive and is maintained on a regimen of lisinopril, amlodipine and does well with these. Also, the patient has hyperlipidemia and is maintained on a regimen of pravastatin 40 mg daily for this issue and tolerates it well. REVIEW OF SYSTEMS: CONSTITUTIONAL: Fatigue, tiredness, but not weight changes or chills. PULMONARY: Negative for shortness of breath, cough or hemoptysis. CARDIAC: Negative for chest pain, palpitations, syncope, presyncope. HEENT: Negative for sore throat, sinus pain, ear discharge. GASTROINTESTINAL: Noted for a recent episode of pancreatitis, nausea, but no vomiting, no major changes in bowel movement frequency. NEUROLOGY: Negative for loss of consciousness, headache or seizure activity. SKIN: Negative for rash, discoloration, ulceration or other major abnormalities. Otherwise, review of systems noncontributory other than those mentioned in HPI. [facility] [address] [place] [address] CONSULTATION Name: ALEX FERRER Room #: 205-[facility] IN M.R.#: [id number] Admission: 06/18/19 Attend Phys: Chuck Garcia MD Discharge: Date of : 48 Report #: [id number] PAST MEDICAL HISTORY: 1. Hypertension. 2. Hyperlipidemia. 3. Pancreatitis. 4. Gout. 5. Coronary artery disease. OUTPATIENT MEDICATIONS: Include Eliquis 5 mg b.i.d., K-Dur 20 mEq daily, lisinopril 40 mg daily, doxazosin 2 mg daily, amlodipine 10 mg daily, pravastatin 40 mg daily, Plavix 75 mg daily, colchicine 0.6 mg daily, prednisone p.r.n. gout flares. ALLERGIES: No known drug allergies. FAMILY HISTORY: Noncontributory. SOCIAL HISTORY: The patient is , has one child. Denies use of tobacco or alcohol. PHYSICAL EXAMINATION: GENERAL: Pleasant patient who is not in apparent pain or distress. VITAL SIGNS: Blood pressure is 138/70 mmHg, heart rate is 80 beats per minute, respiration 18 per minute, temperature 36.5 degrees. CONSTITUTIONAL: He is sitting comfortably in his reclining chair, not in apparent pain or distress. HEENT: Anicteric sclerae. Intact extraocular motions. NECK: Supple, without JVD, carotid bruits or lymphadenopathy. I do not appreciate thyromegaly. CHEST: Clear to auscultation with scattered rales, but no wheezes or crackles. HEART: Regular rate and rhythm without murmurs or gallops. ABDOMEN: Soft and lax, but distended, nontender, no guarding. Sluggish bowel sounds. EXTREMITIES: Lower extremity exam is noted for trace ankle edema bilaterally with palpable pedal pulses. No skin breaks or ulcerations. NEUROLOGIC: Awake, alert and oriented to time, place and person. The remainder of examination is nonfocal. PSYCHIATRIC: Normal mood and affect, interactive, pleasant and appropriate. LABORATORY DATA: Sodium 133, potassium 4.2, chloride 99, CO2 of 20, anion gap of 14, BUN 24, creatinine 2.1, glucose 99, AST 27, amylase 187, lipase 506. Total bilirubin 0.8, calcium 8.2, phosphorus 4.2, magnesium 1.5, uric acid 3.5, ALT 74, total bilirubin 6.4, albumin 2.8, GFR 31. Lactic acid 1.5, troponin 0.08. Total cholesterol 124, triglycerides 94, HDL 49, LDL 65. CRP 104.7, free T4 is pending. Free T3 is pending. White blood count 24, hemoglobin 9.5, hematocrit 28.9, platelets 190. TSH 0.012. [facility] [address] [place] [address] CONSULTATION Name: ALEX FERRER Room #: 205-P ADM IN M.R.#: [id number] Admission: 06/18/19 Attend Phys: Chuck Garcia MD Discharge: Date of : 48 Report #: [id number] ASSESSMENT AND PLAN: 1. Hyperthyroidism. I certainly agree that the significant TSH suppression should prompt consideration of hyperthyroidism. However, in view of the patient's clinical euthyroid outlook, I would certainly be in favor of confirming this outlook first with free T4 and free T3 levels. Should these also speak to an outlook of hyperthyroidism, then a more detailed workup involving thyroid serology and thyroid ultrasonography would be required to investigate this further. Further management will be based on the results of that pending free T3 and free T4. 2. Hypertension. The patient's level of blood pressure control is adequate with the current regimen. He is to continue with the same. 3. Hyperlipidemia. The patient's level of lipid control is adequate on the current lipid-lowering therapy. He is to continue the same. 4. Sepsis. The patient presents with an outlook sepsis and is currently placed on Zosyn. I will defer this aspect to the Hospital Medicine. I certainly appreciate this consultation by Dr. Garcia. <ELECTRONICALLY SIGNED> By: Jakub Bianchi MD 06/20/19 1041 1513 0036 Jakub Bianchi MD /nt
--- NOTE | 2019-06-20 17:59 | NUR ---
ASSUMED CARE AT SHIFT CHANGE, ALERT AND ORIENTED X4. APCED ON THE MONITOR. RUNS TEMPS 101.0-101.4, MEDICATED WITH TYLENOL INDICATED. C/O ABD DISCOMFORT, ABD IF FIRM AND PATIENT HAD MULTIPLE GREEN LOOSE STOOLS. AND WILL CONTINUE WITH POC.
[2019-06-21 04:30] VITALS: BP 122/80
[2019-06-21 05:05] LABS: HEMATOCRIT 27.4 % (42.0-52.0); HEMOGLOBIN 9.1 gm/dL (14.0-18.0); MCH 29.7 pg (26.0-34.0); MCHC 33.1 g/dL (28.0-37.0); MCV 89.7 fL (80.0-100.0); RBC 3.06 mil/uL (4.50-6.00); RDW 14.4 % (10.5-14.5); WBC 10.9 thou/uL (4.0-11.0)
[2019-06-21 05:25] LABS: CALCIUM 7.8 mg/dL (8.5-10.1); CREATININE 1.9 mg/dL (0.7-1.3); MAGNESIUM 1.8 mg/dL (1.8-2.4)
[2019-06-21 05:38] LABS: POTASSIUM 2.5 mmol/L (3.5-5.1)
--- NOTE | 2019-06-21 06:02 | NUR ---
ASSUME CARE 1900. PT STABLE BUT AN EPISODE OF FEVER WITH CHILLS. TYLENOL FOR RELIEF. INDICATES MILD ABDOMINAL PAIN. UP AD CORDELL. TOLERATES ACTIVITY WELL. BP RUNS SOFT. AV PACED OR SR/ST NOTED ON MONITOR. DIARRHEA NOTED WITH GREENISH YELLOW MUCUS LIKE STOOLS. POTASSIUM 2.5 WITH MG T 1.8. REPLACEMENT K ORDERED. WBC BACK TO NORMAL. INF AT 125. ASSESSMENT CHARTED. PROGRESSING SLOWLY WITH POC. WILL CONTINUE TO MONITOR AND FOLLOW WEITH POC
[2019-06-21 07:36] VITALS: BP 109/45
--- NOTE | 2019-06-21 13:12 | EKG ---
[address] [address] ELECTROCARDIOGRAM REPORT Name: ALEX FERRER Room #: 205-P ADM IN M.R.#: [id number] Admission: 06/18/19 Attend Phys: Chuck Garcia MD Discharge: Date of : 48 Report #: [id number] THIS REPORT FOR: //name// 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
--- NOTE | 2019-06-21 17:27 | NUR ---
ASSESMENT CHARTED, K+ REPLACED PER ORDERS. UP AD CORDELL WITH FAMILY. SR/ST OR AV PACED ON THE MONITOR, VSS AND AFEBRILE. MEDICATED FOR ABD PAIN X1, AND FOR HEADACHE X1. ONLY 2 BM's TODAY. AND WILL CONTINUE WITH POC.
[2019-06-21 18:33] LABS: CALCIUM 7.8 mg/dL (8.5-10.1); POTASSIUM 3.4 mmol/L (3.5-5.1)
[2019-06-21 19:59] VITALS: BP 80/46
[2019-06-21 20:48] VITALS: BP 105/46
[2019-06-21 23:30] VITALS: BP 128/76
[2019-06-22] VITALS (7 sets, daily range): BP systolic 93–140; BP diastolic 45–72
[2019-06-22 00:19] LABS: HEMATOCRIT 25.7 % (42.0-52.0); HEMOGLOBIN 8.5 gm/dL (14.0-18.0); MCH 29.9 pg (26.0-34.0); MCV 90.6 fL (80.0-100.0); RBC 2.84 mil/uL (4.50-6.00); RDW 14.9 % (10.5-14.5); WBC 9.6 thou/uL (4.0-11.0)
[2019-06-22 00:25] LABS: CALCIUM 8.2 mg/dL (8.5-10.1); CREATININE 2.2 mg/dL (0.7-1.3); POTASSIUM 3.8 mmol/L (3.5-5.1)
[2019-06-22 00:34] LABS: BE(vivo) -16.7 mmol/L (-2 to +3); HCO3 10.1 mmol/L (22.0-26.0); PCO2 27.6 mmHg (35.0-45.0); PO2 95.7 mmHg (80.0-100.0); sO2 95.7 % (92.0-98.0)
[2019-06-22 00:36] LABS: pH 7.183 (7.360-7.450)
--- NOTE | 2019-06-22 01:14 | NUR ---
SEE PAVING INSPECTOR FLOW SHEET.
--- NOTE | 2019-06-22 03:45 | NUR ---
PT HAD CHANGE IN STATUS.ON MONITOR PT WENT INTO TACHY/AFIB WITH HR HIGH 130-150S SUSTAINING.ON ASSESSING THE PT ,PT SEEMS LETHATGIC,AND NON RESPONSIVE WITH FIXED STARE.WHEN ASKED WHAT WAS HIS NAME PT WAS UNABLE TO ANSWER OR FOLLOW SIMPLE COMMANDS.PT WAS UNABLE TO SQUEEZE MY HANDS.VSS REVEALED FEVER OF 101.5,WITH RAPID BREATHING BREATHING.O2 AT 2LITERS APPLIED.RAPID RESPONSE ACTIVATED.PT CONTINUED TO HAVE DECREASED LEVEL OF MENTAL STATUS,CODE STROKE ACTIVATED BUT UPON RAPID RESPONSE CANCELLED CODE STROKE AFTER FURTHER ASSESSMENT.LUNGS NOTED WHEEZING,LASIX 40 MG WAS ORDERED.XRAY TO CHEST, ABDOMEN,BMP,CBC,TYLENOL SUPPOSITORY,NEB TX,ABGS ORDERED AND ADMINISTRED.KUB SHOWED ABD OBSTRUCTION AND DISTENTION,DR GRANT FOR DR JUDGE NOTIFIES OF THE PATIENT STATUS,ADVISED TO CONTINUE WITH NG TUBE INSERTION PLAN ADN F/U WITH [facility] IN THE MORNING FOR CT SCAN RECOMMENDED BY THE KUB RESULT.SEE REVIEWS FOR ORDERS AND MARS FOR ALL THE ORDERS.
[2019-06-22 05:29] LABS: HEMATOCRIT 22.4 % (42.0-52.0); HEMOGLOBIN 7.4 gm/dL (14.0-18.0); MCH 29.8 pg (26.0-34.0); MCHC 33.1 g/dL (28.0-37.0); RBC 2.48 mil/uL (4.50-6.00); RDW 14.5 % (10.5-14.5); WBC 6.4 thou/uL (4.0-11.0)
[2019-06-22 05:37] LABS: CALCIUM 7.7 mg/dL (8.5-10.1); CREATININE 2.4 mg/dL (0.7-1.3); MAGNESIUM 1.6 mg/dL (1.8-2.4); POTASSIUM 3.2 mmol/L (3.5-5.1)
[2019-06-22 06:51] LABS: HCO3 12.2 mmol/L (22.0-26.0); PCO2 26.1 mmHg (35.0-45.0); PO2 156.7 mmHg (80.0-100.0); pH 7.289 (7.360-7.450); sO2 98.8 % (92.0-98.0)
--- NOTE | 2019-06-22 07:29 | NUR ---
critical labs of of PH 7.28,CALLED IN TO DR ABCH,NO ORDERS RECEIVED
--- NOTE | 2019-06-22 09:01 | EKG ---
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 : 1950 Requested By: Dora Hall Order Number: [id number] MD: Oniel Dee Measurements Intervals [place] Rate: 110 P: ME: QRS: 58 QRSD: 103 T: 259 QT: 288 QTc: 390 Interpretive Statements Atrial fibrillation Nonspecific ST and T wave abnormality Compared to ECG 06/18/2019 17:19:04 Sinus rhythm no longer present Electronically Signed On 06-22-2019 9:01:44 CDT by Oniel Dee [email or web address] <ELECTRONICALLY SIGNED> By: Oniel Dee MD, [facility] 06/22/19 0901 Oniel Dee MD, [facility] /EPI
[2019-06-22 09:13] LABS: ALBUMIN 2.1 g/dL (3.4-5.0); PHOSPHORUS 2.8 mg/dL (2.5-4.9); TOTAL BILIRUBIN 0.3 mg/dL (<0.1-1.0); TOTAL PROTEIN 5.5 g/dL (6.4-8.2)
--- NOTE | 2019-06-22 13:19 | NUR ---
VASCULAR ACCESS CONSULTED FOR PICC PLACEMENT FOR TPN,ABX'S AND IV FLUIDS. PT HAD PICC LINE FEW WEEKS AGO THAT WAS APPROVED BY DR FAITH. DISCUSSED BENEFITS AND RISK WITH PT,VERBALIZED UNDERSTANDING. ORDER AND CONSENT VERIFIED. TANVIRTani MARTINEZGIANNA WAS WIDELY PATENT WITH USG. 5FR TL POWER PICC TRIMMED TO 40CM INSERTED PER HOSPITAL P&P TO 1CM EXTERNAL. PT TOLERATED WELL. STAT CXR ORDERED.
--- NOTE | 2019-06-22 13:27 | NUR ---
CXR CONFIRMED PICC IN SVC, RELEASED FOR IMMEDIATE USE PER PROTOCOL TO AURELIA NORIEGA
[2019-06-22 13:29] LABS: URINE BILIRUBIN NEGATIVE (Negative); URINE BLOOD 1+ (Negative); URINE CLARITY CLEAR; URINE COLOR YELLOW; URINE GLUCOSE-RANDOM* NEGATIVE (Negative); URINE KETONES NEGATIVE (Negative); URINE LEUKOCYTES-REFLEX TRACE (Negative); URINE NITRITE-REFLEX NEGATIVE (Negative); URINE PROTEIN (DIPSTICK) 1+ (Negative); URINE SPECIFIC GRAVITY 1.015 (1.005-1.035); URINE UROBILINOGEN 0.2 E.U./dl (0.2-1.0)
[2019-06-22 13:46] LABS: GLYCOHEMOGLOBIN (HGB A1C) 6.4 % (4.8-5.6)
[2019-06-22 13:47] LABS: HYALINE CASTS 0-3 Few /LPF (None Seen)
[2019-06-22 13:48] LABS: BACTERIA-REFLEX 1-9 Few /HPF (None Seen); CRYSTALS None Seen /LPF (None Seen); SQUAMOUS None Seen /LPF (0-3); URINE RBC 0-2 Rare /HPF (0-2); URINE WBC-REFLEX 6-15 Few /HPF (0-5)
--- NOTE | 2019-06-22 19:50 | NUR ---
ASSUMED CARE AT SHIFT CHANGE, ALERT AND ORIENTED X4. AFEBRILE IN AM AND BP SOFT. REMAINS IN DISTRESS AND ABD IS FIRM AND DISTENTED. AT 1630 PATIENT 100.1. NG TUBE TO LIS WITH GREENISH AND COFFEE GROUND OUTPUT. HAD TO LG BM AND ASENCIO TO DD. AND WILL CONTINUE WITH POC.
[2019-06-23 00:20] VITALS: BP 156/71
[2019-06-23 05:00] VITALS: BP 156/83
--- NOTE | 2019-06-23 05:54 | NUR ---
PATIENTS CARES WERE ASSUMED AT SHIFT CHANGE, PATIENT WAS ASSESSED AND MEDS WERE PASSED. HOURLY ROUNDING WAS DONE. REPORTED TO THE DOCTOR OF LUNG SOUND CHANGES. SUGGESTED THE THE AMOUT OF FLUID PER HOUR IS ADJUSTED TO PREVENT FLUID OVERLOAD. PATIENT DID HAVE A BM THIS SHIFT. PATIENT TEMP DID ELEVATE TO 101.5. THAT WAS OUR HIGHEST THIS SHIFT. THE BED ALARM IS ON AND THE BED IS IN A LOW AND LOCKED POSITION
[2019-06-23 07:41] LABS: CALCIUM 7.7 mg/dL (8.5-10.1); CREATININE 1.9 mg/dL (0.7-1.3); PHOSPHORUS 2.6 mg/dL (2.5-4.9); TOTAL BILIRUBIN 0.2 mg/dL (<0.1-1.0); TOTAL PROTEIN 5.6 g/dL (6.4-8.2)
[2019-06-23 07:45] LABS: POTASSIUM 2.7 mmol/L (3.5-5.1)
[2019-06-23 07:46] VITALS: BP 142/60
--- NOTE | 2019-06-23 09:25 | HC ---
[facility] [place] [address] CONSULTATION Name: ALEX FERRER Room #: 205-P ADM IN M.R.#: [id number] Admission: 06/18/19 Attend Phys: Chuck Garcia MD Discharge: Date of : 48 Report #: [id number] THIS REPORT FOR: //name// CC: Chuck Lyon DATE OF SERVICE: 06/22/2019 INFECTIOUS DISEASE CONSULTATION REASON FOR CONSULTATION: I was asked to evaluate concerning persistent fever in the setting of pancreatitis. HISTORY OF PRESENT ILLNESS: The patient is a 69 year old with underlying history of pancreatitis diagnosed last month. He has known pseudocyst. He returned with acute onset of fever, increased abdominal distention and pain. He also has a history of coronary artery disease, hypertension and hyperlipidemia. On admission, he was tachycardic. His lipase was over 500. His creatinine has been in the mid 2 range. Placed on IV fluids and started on IV antibiotic therapy including vancomycin and Zosyn. He has had persistent fever. He has had intermittent fevers up to 102 degrees throughout his hospital stay. He has persistent abdominal distention and tenderness. He has an NG tube in place now to suction. He has been followed by Endocrinology and General Surgery. It was felt that he now has an ileus. He has had some loose stools. No blood in his stool. GI service has been following. No vomiting. He has had no blood in his urine. Denies any cough or sputum production. Had one episode of blank stare earlier this morning. This is being further evaluated by primary service. He has had no residual weakness. This change in mental status did not last long. He remains alert and cooperative, although a poor historian. Further history was gleaned from the family at the bedside as well as nursing staff. He reports his pain as moderate in intensity with some radicular feature to his posterior chest and upper back. The loose stools are new over the last 2 days. ALLERGIES: None known. MEDICATIONS: As noted on his NOV, which were reviewed, now on vancomycin and Zosyn. PAST MEDICAL HISTORY: Prostatitis, hyperlipidemia, hypertension, coronary artery disease, atrial fibrillation, gout, chronic kidney disease, previous ATN. FAMILY HISTORY: Noncontributory. SOCIAL HISTORY: Past smoker, no significant alcohol intake, although he does use some alcohol. [facility] [address] [place] [address] CONSULTATION Name: ALEX FERRER Room #: 205-[facility] IN M.R.#: [id number] Admission: 06/18/19 Attend Phys: Chuck Garcia MD Discharge: Date of : 48 Report #: [id number] REVIEW OF SYSTEMS: Ten-point review was negative other than what has been described above. PHYSICAL EXAMINATION: VITAL SIGNS: He was afebrile and hemodynamically stable. Maximum temperature today was 38.7 degrees, heart rate was 87, blood pressure 93/45. He had an NG tube in place. Peripheral IV in place. SKIN: He had 2+ anasarca. No palpable adenopathy. EYES: Without scleral icterus. MOUTH: Without mucositis. LUNGS: Decreased breath sounds in the bases bilaterally. HEART: Regular, without murmur, gallop or rub. ABDOMEN: Tense, distended and diffusely tender. No appreciable mass or hepatosplenomegaly. GENITOURINARY: External genitalia unremarkable with indwelling Mann catheter. RECTAL: Not performed. EXTREMITIES: With 2+ anasarca. BACK: Nontender. NEUROLOGIC: Cranial nerves intact. Able to move all extremities, upper and lower with reasonable strength. Sensation was intact. Mood was mildly depressed. LABORATORY STUDIES: CT scan of the abdomen showed basilar atelectasis and small infiltrates, pancreatic pseudocyst 5 x 2.6 cm with surrounding fat stranding, small bowel distention. Vancomycin trough is 15. Procalcitonin 6, lipase 221, creatinine 2.4, bicarbonate of 14. Liver function test normal. Hemoglobin 7.4, platelet 105,000, WBC 6.4. Blood cultures from 06/18/2019 negative today. IMPRESSION: A 69 year old with pancreatitis and pseudocyst with ongoing fever despite IV antibiotic therapy. Considerations would include infected pseudocyst versus basilar infiltrates versus urinary tract versus cholecystitis as source. Drug fever would be less likely. 1. Has metabolic acidosis and acute on chronic renal insufficiency. 2. Thrombocytopenia due to DIC or drugs. 3. Anemia. 4. Ileus. RECOMMENDATIONS: We will change his antibiotic program with vancomycin, meropenem and fluconazole. We will repeat blood and urine cultures. If no improvement, we will then need to discuss further workup including aspiration of [address] [address] CONSULTATION Name: ALEX FERRER Room #: 205-P ADM IN M.R.#: [id number] Admission: 06/18/19 Attend Phys: Chuck Garcia MD Discharge: Date of : 48 Report #: [id number] the pseudocyst. He will need continued nutritional support and hopefully use his gut, if possible. Do note surgical evaluation. <ELECTRONICALLY SIGNED> By: Chester Roper MD 06/23/19 0925 1227 0115 Chester Roper MD /nt
[2019-06-23 11:53] VITALS: BP 155/53
--- NOTE | 2019-06-23 13:15 | NUR ---
ASSUMED CARE AT SHIFT CHANGE, ALERT AND ORIENTED X4, PATIENT STATED THAT HE FEELS BETTER TODAY. LOW GRADE FEVER AT 100.5 NOTED, REMAINS ON IV ABX AND FLUIDS. K+ AT 2.7 , K+ AND MAG IS BEING REPLACED PER ORDRES. PATIENT HAS RASH ALL OVER HIS BACK, PATIENT SAID THAT THE RASH IS NOT ITCHING,MD AND PHARMACY NOTIFIED, AND WILL CONTINUE TO MONITOR.
[2019-06-23 19:55] VITALS: BP 131/62
[2019-06-23 21:17] LABS: ABSOLUTE NEUTROPHILS 5.5 thou/uL (1.4-8.2); BASOPHILS 0.2 % (0.0-2.0); EOSINOPHILS 0.4 % (0.0-3.0); HEMATOCRIT 21.1 % (42.0-52.0); LYMPHOCYTES 4.2 % (24.0-44.0); MCH 29.6 pg (26.0-34.0); MCHC 33.4 g/dL (28.0-37.0); MCV 88.7 fL (80.0-100.0); MONOCYTES 2.6 % (1.0-8.0); PLATELET COUNT 114 thou/uL (150-400); POLYS 92.6 % (36.0-66.0); RBC 2.38 mil/uL (4.50-6.00); RDW 14.7 % (10.5-14.5); WBC 5.9 thou/uL (4.0-11.0)
[2019-06-23 21:25] LABS: CALCIUM 8.3 mg/dL (8.5-10.1); CREATININE 1.7 mg/dL (0.7-1.3); MAGNESIUM 1.5 mg/dL (1.8-2.4); POTASSIUM 3.5 mmol/L (3.5-5.1)
[2019-06-24] VITALS (10 sets, daily range): BP systolic 126–175; BP diastolic 60–85
--- NOTE | 2019-06-24 04:56 | NUR ---
ASSUMED PT CARE AT 1900. VSS. AFEBRILE PT A&OX4. PT RESTED WELL FOR SOME OF THE NIGHT. LIQUID STOOLS STILL PRESENT, IVF AND TPN RUNNING, ASENCIO STILL PRESENT GOOD URINE OUTPUT. BLOOD GLUCOSE TRENDING UP, GEOVANY NOTIFIED, LOW DOSE SSI IMPLEMENTED. HENCE 4U OF INSULIN GIVEN AROUND 1AM THIS AM. MAG REPLAED, POTASSIUM BACK UP, PT IS STABLE, ABD STILL DISTENDED BUT SOFT. NO COMPLAINTS OF PAIN OR DISCOMFORT, WILL CONINUE TO MONITOR PER POC.
[2019-06-24 06:14] LABS: HEMOGLOBIN 6.8 gm/dL (14.0-18.0); WBC 5.9 thou/uL (4.0-11.0)
[2019-06-24 06:17] LABS: HEMATOCRIT 20.4 % (42.0-52.0); MCH 29.8 pg (26.0-34.0); MCHC 33.4 g/dL (28.0-37.0); MCV 89.3 fL (80.0-100.0); RBC 2.28 mil/uL (4.50-6.00)
[2019-06-24 06:27] LABS: CALCIUM 8.3 mg/dL (8.5-10.1); CREATININE 1.6 mg/dL (0.7-1.3); POTASSIUM 3.6 mmol/L (3.5-5.1)
[2019-06-24 06:31] LABS: MAGNESIUM 2.2 mg/dL (1.8-2.4); PHOSPHORUS 2.3 mg/dL (2.5-4.9)
--- NOTE | 2019-06-24 14:19 | NUR ---
STARTING CLEAR LIQUIDS TODAY. AT SPOUSE'S REQUEST CALLED PT'S [employer] AT [phone] AND PROVIDED READMISSION DATE AND CURRENTLY IN HOUSE. INFORMED INFO WOULD BE FORWARDED TO [employer] AND PROVIDED MY CONTACT # FOR ANY QUESTIONS. SPOUSE INDICATED PT'S PCP DR. NOGUERA IS SUPPOSED TO BE COMPLETING FMLA PAPERWORK AND CALLED DR. NOGUERA'S OFFICE AND LEFT VM WITH CM CONTACT # TO FIND OUT STATUS OF FMLA PAPERWORK.
[2019-06-24 18:17] LABS: BE(vivo) -14.4 mmol/L (-2 to +3); HCO3 11.2 mmol/L (22.0-26.0); PCO2 25.8 mmHg (35.0-45.0); PO2 73.9 mmHg (80.0-100.0); pH 7.257 (7.360-7.450)
--- NOTE | 2019-06-24 19:03 | NUR ---
ASSUMED CARE AT SHIFT CHANGE, PATEINT IS ALERT AND ORIENTED X4. BP WAS ELEVATED AT 1130, RECHECKED 145/82, AND AFEBRILE. 1 UNIT OF RBC INFUSED, AND TRANSFUSION REACTION NOTED. ASENCIO D/CIED AND PATIENT VIODED X2. ABG RESULTS CALLED IN TO [facility], AND LEFT A VOICE MAIL FOR DR JUDGE. DR DASILVA WAS PAGED WELL. WILL CONTINUE WITH PPOC.
--- NOTE | 2019-06-24 20:37 | NUR ---
PT ABG CALLED TO DR JUDGE AND RECEIVED ORDER TO PULMONARY PHYSICIAN, RECEIVED ORDER FOR TRANSFER TO ICU, INFORMED PT, RESPIRATIONS AT 30 TO 35, HELPED PT USE URINAL AND BACK TO BED. REPORT CALLED TO ICU.
--- NOTE | 2019-06-24 21:30 | NUR ---
Pt arrived ICU around 2110. He is accompanied by 2 [place] staffs to room 240. He is being tx here due to increase shortness of breath. He is awakes and oriented x4. Shortness of breath and exertion with activity noted. Denies of any pain upon arrival. ABD is very distended, drums sound like with percussion. Denies N/V. He reported feeling discomfort in lower ABD. is here to see pt. Assessment completed. Care plans are updates. Continue working toward goals.
[2019-06-25] VITALS (23 sets, daily range): BP systolic 130–171; BP diastolic 71–91
[2019-06-25 05:17] LABS: HEMATOCRIT 24.3 % (42.0-52.0); HEMOGLOBIN 8.1 gm/dL (14.0-18.0); MCH 30.5 pg (26.0-34.0); MCHC 33.3 g/dL (28.0-37.0); MCV 91.4 fL (80.0-100.0); RBC 2.66 mil/uL (4.50-6.00); RDW 15.2 % (10.5-14.5); WBC 7.6 thou/uL (4.0-11.0)
[2019-06-25 05:44] LABS: PHOSPHORUS 3.7 mg/dL (2.5-4.9)
[2019-06-25 05:45] LABS: ALBUMIN 2.2 g/dL (3.4-5.0); CALCIUM 8.3 mg/dL (8.5-10.1); CREATININE 1.6 mg/dL (0.7-1.3); POTASSIUM 3.9 mmol/L (3.5-5.1); TOTAL BILIRUBIN 0.2 mg/dL (<0.1-1.0); TOTAL PROTEIN 5.8 g/dL (6.4-8.2)
--- NOTE | 2019-06-25 06:15 | NUR ---
Pt has non raised rashes all over his back. Possible due to reactions from antibiotics. No changes of rashes during receive Merrem. Continue to monitor him closely.
--- NOTE | 2019-06-25 07:55 | NUR ---
CALL PT'S BACK PER HER REQUESTED. UPDATES HER REGARDING OF PT'S CURRENT CONDITIONS AND TREATMENT PLANS. SHE REQUESTED TO SPEAK WITH DOCTORS WHEN THEY DO ROUND. WILL PASS MESSAGE TO DAY SHIFT RN.
--- NOTE | 2019-06-25 10:29 | NUR ---
FOLLOWING FOR DC PLANNING. CLINICAL INFO REIVEWED AND DISCUSSED WITH DR. JUDGE THIS AM. PT WITH INCREASING RESP DISTRESS YESTERDAY AND TRANSFERRED TO ICU. ADMIT WITH PANCREATITIS WITH PSEUDOCYST AND REMAINS WITH METABOLIC ACIDOSIS AND ACUTE ON CHRONIC RENAL INSUFFICIENCY, THROMBOCYTOPENIA DUE TO DIC VS DRUG, ILEUS, ANEMIA. PLAN TODAY FOR ABD IMAGING, CARDIOLOGY CONSULT (FLUID OVERLOAD), ECHO. MAY NEED IR VS SURGICAL INTERVENTION. DR. JUDGE INDICATES SHE SPENT TIME WITH PT AND SPOUSE 06/24/19 REVIEWING CLINICAL CONDITION AND PLAN OF CARE. SUPPORTIVE VISIT TO PT AND SPOUSE 06/24/19. SPOUSE NOTIFIED DR. NOGUERA'S OFFICE CALLED BACK TO CONFIRM FMLA FORMS COMPLETED AND FAXED TO [employer] AND COPY ALSO AVAILABLE FOR SPOUSE AT DR. NOGUERA'S OFFICE. UNCLEAR DC PLAN AT PRESENT. 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
--- NOTE | 2019-06-25 11:46 | 2DMMODE ---
[facility] [employer] [place] [address] 2 D/M-MODE ECHOCARDIOGRAM Name: ALEX FERRER Room #: 240-P ADM IN M.R.#: [id number] Admission: 06/18/19 Attend Phys: Chuck Garcia, Discharge: Date of : 46 Report #: [id number] THIS REPORT FOR: //name// APPROVED REPORT Study performed: 06/25/2019 10:13:45 EXAM: Comprehensive 2D, Doppler, and color-flow Echocardiogram Patient Location: ICU Room #: 240 Status: routine BSA: 1.88 HR: 74 bpm BP: 160/79 mmHg Rhythm: Pacemaker Other Information Study Quality: Good Indications Diabetes Dyspnea Pacemaker CAD Hypertension/HDD 2D Dimensions RVDd: 35.50 mm IVSd: 11.07 (7-11mm) LVOT Diam: 20.65 (18-24mm) LVDd: 52.53 mm PWd: 10.89 (7-11mm) Ascending Ao: 37.08 (22-36mm) LVDs: 38.32 (25-40mm) Aortic Root: 32.19 mm IVC: 27.00 mm Volumes Left Atrial Volume (Systole) Single Plane 4CH: 77.37 mL Single Plane 2CH: 68.64 mL LA ESV Index: 42.00 mL/m2 Aortic Valve AoV Peak Raymond.: 1.13 m/s AO Peak Gr.: 5.08 mmHg LVOT Max P.58 mmHg LVOT Max V: 0.95 m/s ANNETTE Vmax: 2.81 cm2 [facility] [address] [place] [address] 2 D/M-MODE ECHOCARDIOGRAM Name: ALEX FERRER Room #: 240-P [facility]#: [id number] Admission: 06/18/19 Attend Phys: Chuck Garcia, Discharge: Date of : 46 Report #: [id number] Pulmonary Valve PV Peak Raymond.: 0.90 m/s PV Peak Gr.: 3.27 mmHg Tricuspid Valve TR Peak Raymond.: 3.30 m/s TR Peak Gr.: 43.47 mmHg PA Pressure: 58.00 mmHg Left Ventricle The left ventricle is normal size. There is normal LV segmental wall motion. There is normal left ventricular wall thickness. The left ventricular systolic function is normal. The left ventricular ejection fraction is within the normal range. LVEF is 55-60%. This study is not technically sufficient to allow evaluation of the LV diastolic function. Right Ventricle The right ventricle is normal size. The right ventricular systolic function is normal. Atria Left atrium is dilated. Right atrium is dilated. Aortic Valve The aortic valve is normal in structure. Aortic valve is calcified. Mild aortic regurgitation. There is no aortic valvular stenosis. Mitral Valve The mitral valve is normal in structure. Mild to moderate mitral regurgitation. No evidence of mitral valve stenosis. Tricuspid Valve The tricuspid valve is normal in structure. There is mild to moderate tricuspid regurgitation. Estimated PAP 58 mmHg. There is moderate pulmonary hypertension. Pulmonic Valve The pulmonary valve is normal in structure. Mild pulmonic regurgitation. Great Vessels The aortic root is normal in size. The inferior vena cava is dilated with no inspiratory collapse. Pericardium [facility] [address] [place] [address] 2 D/M-MODE ECHOCARDIOGRAM Name: ALEX FERRER Room #: 240-P [facility] IN .R.#: [id number] Admission: 06/18/19 Attend Phys: Chuck Garcia, Discharge: Date of : 46 Report #: [id number] There is no pericardial effusion. <Conclusion> The left ventricle is normal size. LVEF is 55-60%. This study is not technically sufficient to allow evaluation of the LV diastolic function. The right ventricle is normal size. Left atrium is dilated. Right atrium is dilated. The aortic valve is normal in structure. Aortic valve is calcified. Mild aortic regurgitation. There is no aortic valvular stenosis. Mild to moderate mitral regurgitation. There is mild to moderate tricuspid regurgitation. Estimated PAP 58 mmHg. There is moderate pulmonary hypertension. The aortic root is normal in size. There is no pericardial effusion. <ELECTRONICALLY SIGNED> By: Deion Nelson MD, [facility] 06/25/19 1145 [id number] [id number] Deion Nelson MD, [facility] /INF
--- NOTE | 2019-06-25 14:27 | NUR ---
1400-MRI CALLED. STATED NEEDS TO BE STRICT NPO FOR 4 HRS FOR TEST.SCHEDULED FIRST THING IN AM, ~0830 & WILL KEEP PT NPO p 0400. PT'S DTR INFORMED.--VW
--- NOTE | 2019-06-25 20:39 | NUR ---
pt up to chair between [id number], tolerated getting back to bed well assist x 2, minimal wheezing noted, dr hay at bedside to assess wheezing, no new orders at this time. will moniotr closely. pt has no pain.
[2019-06-26] VITALS (24 sets, daily range): BP systolic 138–176; BP diastolic 73–116
[2019-06-26 04:30] LABS: CALCIUM 8.1 mg/dL (8.5-10.1); CREATININE 1.5 mg/dL (0.7-1.3); PHOSPHORUS 4.1 mg/dL (2.5-4.9)
[2019-06-26 04:59] LABS: HEMATOCRIT 26.3 % (42.0-52.0); HEMOGLOBIN 8.6 gm/dL (14.0-18.0); MCH 29.7 pg (26.0-34.0); MCHC 32.6 g/dL (28.0-37.0); MCV 91.2 fL (80.0-100.0); RBC 2.88 mil/uL (4.50-6.00); WBC 10.4 thou/uL (4.0-11.0)
--- NOTE | 2019-06-26 05:38 | NUR ---
PATIENT ALERT AND ORIENTED X4, FORGETFUL AT TIMES. PACED ON REGISTERED DIET TECHNICIAN. PATIENT RESTLESS OVER NIGHT, INTERMITTENTLY PULLING OFF OXYGEN MONITOR AND CLIMBING OUT OF BED. PATIENT EDUCATED ON THE IMPORTANTCE OF FALL PREVENTION. ABDOMEN REMAINS DISTENDED, PATIENT HAS SWELLING IN HANDS AND INCREASED BLOOD PRESSURE. HOME MEDICATION RESTARTED. PATIENT HAS SEVERE DYSPNEA WITH INCREASED ACTIVITY. NO SIGNS OF ACUTE DISTRESS NOTED AT THIS TIME. WILL CONTINUE TO MONITOR.
--- NOTE | 2019-06-26 07:54 | EKG ---
[address] [place] [address] ELECTROCARDIOGRAM REPORT Name: ALEX FERRER Room #: 240-P ADM IN M.R.#: [id number] Admission: 06/18/19 Attend Phys: Chuck Garcia MD Discharge: Date of : 46 Report #: [id number] THIS REPORT FOR: //name// [facility] Test Date: 2019-06-25 Test Time: 09:51:49 Pat Name: ALEX FERRER Department: Room: 240 P Gender: M Blanker Operator: ZANE : 1950 Requested By: Deion Nelson Order Number: [id number] MD: Oniel Dee Measurements Intervals [place] Rate: 70 P: NE: QRS: 58 QRSD: 116 T: 21 QT: 386 QTc: 417 Interpretive Statements Afib/flut and V-paced complexes No further analysis attempted due to paced rhythm Compared to ECG 06/22/2019 00:20:10 ventricular pacing is now present Electronically Signed On 06-26-2019 7:54:00 CDT by Oniel Dee [email or web address] <ELECTRONICALLY SIGNED> By: Oniel Dee MD, [facility] 06/26/19 0754 [phone] Oniel Dee MD, [facility] /EPI
[2019-06-27] VITALS (24 sets, daily range): BP systolic 132–209; BP diastolic 57–106
[2019-06-27 06:02] LABS: HEMATOCRIT 24.4 % (42.0-52.0); HEMOGLOBIN 8.1 gm/dL (14.0-18.0); MCH 29.9 pg (26.0-34.0); MCHC 33.3 g/dL (28.0-37.0); MCV 89.8 fL (80.0-100.0); RBC 2.72 mil/uL (4.50-6.00); RDW 15.2 % (10.5-14.5); WBC 10.5 thou/uL (4.0-11.0)
--- NOTE | 2019-06-27 06:10 | NUR ---
PATIENT IS ALERT AND ORIENTED. PATIENT IS SBA TO BSC. PATIENT HAD TWO LARGE BM THIS SHIFT. PATIENT IS ON TPN. ORAL INTAKE IN GOOD. NO NAUSEA. PATIENT ALEJANDRO 2L NC. PATIENT IS SOB WITH ACITIVTY. PATIENT DENIES PAIN. BP WAS TREATED WITH PRN MEDICATION. PATIENT IS RESTING COMFORTABLY IN BED. PLAN IS TO CONTINUE ANTIBIOTICS AND LATER REMOVE GALLBALADDER. WCM. PATIENT IS PROGRESSING TO GOALS. NO FEVERS THIS SHIFT.
[2019-06-27 06:17] LABS: ALBUMIN 2.4 g/dL (3.4-5.0); CALCIUM 8.2 mg/dL (8.5-10.1); CREATININE 1.3 mg/dL (0.7-1.3); MAGNESIUM 2.1 mg/dL (1.8-2.4); PHOSPHORUS 3.5 mg/dL (2.5-4.9)
--- NOTE | 2019-06-27 11:32 | NUR ---
CALLED NATALIA IN PHARMACY TO RELAY THAT DR FAITH, ORDERS TPN FORMULA TO REMAIN THE SAME, NO CHANGES.
--- NOTE | 2019-06-27 19:31 | NUR ---
PT INCREASE IN ACTIVITY, TOLERATED FAIR, AMBULATED IN HALLWAY WITH WALKER, OXYGEN, GAIT BELT, NURSE ASSISTED. PT SOA, AFTER ACTIVITY, ASSISTED PT TO CHAIR, SPO2 REMAINED STABLE. PT SEEMED PLEASED WITH ACCOMPLISHMENT. ENCOURAGED TO BRING IN EXERCISE BANDS AND HAND WEIGHTS. NO COMPLAINTS OF PAIN. WILL MONITOR.
[2019-06-28] VITALS (19 sets, daily range): BP systolic 120–166; BP diastolic 56–99
--- NOTE | 2019-06-28 03:14 | NUR ---
ASSUMED PT CARE AROUND 1900. PT IS ABLE TO ANSWER MOST ORIENTATION QUESTIONS, BUT IS FORGETFUL. PT DENIES ANY PAIN OR N/V. SHALLOW RESPIRATIONS BUT O2 SATS STABLE ON 2L NC AND PT STATED HIS BREATHING IS BETTER THAN IT HAS BEEN PREVIOUSLY. VSS. AFEBRILE. PT SLEPT MOST OF THE NIGHT. TPN INFUSING ORDERED. PT TOLERATED LIQUID DIET WELL. PT DRANK 1 ENSURE AND 1 CUP OF APPLE JUICE. FALL PRECAUTIONS IN PLACE. PROGRESSING SLOWLY TOWARD POC GOALS. WILL CONTINUE TO MONITOR FURTHER.
[2019-06-28 04:41] LABS: ALBUMIN 2.5 g/dL (3.4-5.0); CREATININE 1.2 mg/dL (0.7-1.3); PHOSPHORUS 3.6 mg/dL (2.5-4.9); POTASSIUM 3.7 mmol/L (3.5-5.1)
--- NOTE | 2019-06-28 20:53 | NUR ---
PATIENT NOTED TO BE SLOWER TO RESPOND WITH LEFT SIDE AND FAMILY ALSO NOTED THAT HE APPEARED TO NEGLECT HIS LEFT SIDE, SPILT DRINK. PATIENT TO CT AT 1515 TODAY VIA W/C WITH O2 AND MONITOR. TOLERATED PROCEDURE ABLE TO MOVE ONTO THE CT TABLE. DR DASILVA'S WOOL CLASSER AND NEURO NOTIFIED OF CT RESULTS. ORDERS NOTED. PATIENT UP IN THE CHAIR TODAY. ASENCIO CATH DC'D AND PATIENT VOIDING LARGE AMT OF CLEAR LT YELLOW URINE, ATTEMPTING TO HOLD URINAL BUT MISSED. PATIENT AND FAMILY UPDATED TO THE POC AND REASSURANCE GIVEN. FAMILY IS VERY ATTENTIVE TO PATIENT'S NEEDS AND ASSIST WITH BATH AND ORAL CARE.
[2019-06-29] VITALS (16 sets, daily range): BP systolic 139–175; BP diastolic 59–96
[2019-06-29 06:36] LABS: ALBUMIN 2.4 g/dL (3.4-5.0); CALCIUM 7.9 mg/dL (8.5-10.1); CREATININE 1.1 mg/dL (0.7-1.3); MAGNESIUM 1.8 mg/dL (1.8-2.4); PHOSPHORUS 3.1 mg/dL (2.5-4.9); PHOSPHORUS 3.2 mg/dL (2.5-4.9); POTASSIUM 3.7 mmol/L (3.5-5.1)
--- NOTE | 2019-06-29 07:34 | NUR ---
Pt was able to transfer to the BSC this morning w/o much difficulty. He remains somewhat slow to respond to questions, but given time he does respond appropriately. has called twice through the night and would like to speak to the MD before the MRI is completed.
--- NOTE | 2019-06-29 12:22 | NUR ---
FOLLOWING FOR DC PLANNING. CLINICAL INFO REVIEWED. PT REMAINS ON TPN AND ALSO ADVANCED ORAL DIET TODAY. PT NOTED WITH LEFT NEGLECT THIS WEEKEND AND IMAGING SHOWS SUBACUTE STROKE AND NEURO FOLLOWING. ACUTE REHAB CONSULTED. UPDATED 5N ADMISSIONS IF PT AGREEABLE TO REHAB STAY TO PLEASE SUBMIT FOR AUTH.
--- NOTE | 2019-06-29 20:40 | NUR ---
BILATERAL CAROTID DOPPLER DONE AT BEDSIDE THIS AM AT MATILDE 0800. PATIENT ASSISTED UP TO THE CHAIR FOR BREAKFAST AND REMAINED UP UNTIL 1830 WHEN PLACED BACK IN BED WITH BED ALARM ON AND SCD'S APPLIED. ASSIST PT WITH AMBULATION OF PATIENT IN THE HALLWAYS. ZACHERY SCALE 4 TO 2, DID BETTER WITH FAMILY'S ASSISTANCE WITH LANGUAGE AND DIRECTIONS. STILL NEGLECTS LEFT SIDE. MONITOR V PACED. PATIENT TAKING PO DIET WITHOUT NAUSEA OR EMESIS, TPN DC'D AND DIET ADVANCED PER PROVIDERS ORDERS. PATIENT AND FAMILY UPDATED TO THE POC AND REASSURANCE GIVEN.
[2019-06-30] VITALS (8 sets, daily range): BP systolic 124–150; BP diastolic 52–84
--- NOTE | 2019-06-30 05:07 | NUR ---
ASSESSMENT CHARTED. VSS. VPACED. NIH 2. X1 ASSIST TO COMMOD. PT DENIES PAIN OR CONCERNS. APEARS SOA WHEN AMBULATING TO COMMOD STATS WNL. TOLERATING DIET. WILL CONTINUE TO MONITOR AND WITH POC.
[2019-06-30 05:51] LABS: ALBUMIN 2.4 g/dL (3.4-5.0); CALCIUM 8.3 mg/dL (8.5-10.1); CREATININE 1.1 mg/dL (0.7-1.3); PHOSPHORUS 3.1 mg/dL (2.5-4.9); POTASSIUM 3.9 mmol/L (3.5-5.1)
--- NOTE | 2019-06-30 10:42 | NUR ---
ASSUMED CARE OF PT AT 0645. NO NEW COMPLAINTS. IPHONE PLACED ON HOT BILLET SHEAR OPERATOR FROM PT'S BAG. WALKED AROUND UNIT WITH THERAPY. LEFT SIDE DEFICIT NOTICABLE WHEN WALKING AND EATING, JUICE SPILLED ON LEFT SIDE.
--- NOTE | 2019-06-30 10:50 | NUR ---
PATIENT SEEN BY DR. BEJARANO ON 06/29/19. PATIENT IS A CANDIDATE FOR ACUTE REHAB STAY. AUTHORIZATION REQUESTED AND INFORMATION SENT TO INSURANCE. AWAITING RESPONSE. THANK YOU FOR THIS REFERAL.
--- NOTE | 2019-06-30 17:40 | NUR ---
SW reviewed chart and spoke with nursing and attending physician. Pt was transferred to 3W from ICU and is progressing towards goals for discharge. 5N has submitted for insurance authorization. Awaiting input from insurance at this time. SW is following to assist as needed with discharge planning.
--- NOTE | 2019-06-30 20:34 | NUR ---
ASSUMED CARE OF PT AROUND 1300 ALERT AND ORIENTED TIMES FOUR, BUT SLOW RESPOND TO QUESTIONS. VSS, TOLERATES MED AND MEALS. UP WITH STANDBY ASSIST. FAMILY AT BEDSIDE. PT SLOWLY PROGRESSING TOWRADS POC GOALS,
[2019-07-01 04:20] VITALS: BP 137/80
--- NOTE | 2019-07-01 07:28 | NUR ---
PT NOW IN RM 358. INFORMED BY 5N ADMISSIONS INSURANCE AUTH OBTAINED FOR 5N ADMIT. DISCUSSSED WITH DR. ACOSTA. CARDIOLOGY RECONSULTED TO EVAL FOR NEED FOR NICKOLAS POST STROKE. PER CARDIOLOGY NOTE, NICKOLAS NOT INDICATED AT THIS TIME. 5N UPDATED THIS AM AND WILL CONFIRM WITH HOSPITALIST IF PT READY FOR TRANSITION TO 5N ACUTE REHAB. 3W ECONOMIST RESEARCH ASSISTANT CM UPDATED.
[2019-07-01 08:49] VITALS: BP 137/85
--- NOTE | 2019-07-01 09:27 | NUR ---
INSURANCE AUTHORIZATION RECEIVED 06/30/19 FOR ACUTE REHAB STAY. ANTICIPATE PATIENT'S ADMISSION TO THIS DATE (07/01/19), IF PATIENT IS MEDICALLY READY.
[2019-07-01 11:49] VITALS: BP 134/81
--- NOTE | 2019-07-01 12:26 | NUR ---
DISCHARGE NOTE: SW notified that Rob did obtain insurance authorization and they can accept pt today if medically stable. SW met with pt at bedside to provide update and discuss 5N's acceptance. Pt is aware an agreeable with plan. Pt to notify his family. Awaiting final discharge orders/summary at this time. Nursing to call report. Rehab CM to follow and assist as needed with discharge planning.
--- NOTE | 2019-07-01 15:12 | NUR ---
ASSUMED CARE OF PT AT 0700. PT ALERT AND ORIENTED, IN NO ACUTE DISTRESS. LEFT SIDED NEGLECT. NIH ASSESSMENTS NO LONGER NECESSARY PER NEUROLOGIST. UP W/ 1 ASSIST. ANTICIPATING D/C TO REHAB PENDING OPEN BED. VPACED ON TELEMETRY. VITALS STABLE. PASSED SWALLOW - OK FOR THIN LIQUIDS - NO STRAWS. WILL CONT TO MONITOR.
[2019-07-01 15:24] VITALS: BP 121/63
[2019-07-01] MEDS ORDERED: BYSTOLIC10 MG PO (15:24)
[2019-07-01] MEDS ORDERED: ADULT LOW DOSE81 MG PO (15:24)
[2019-07-01] MEDS ORDERED: MERREM500 MG IV (15:24)
[2019-07-01] MEDS ORDERED: LANTUS100 UNIT/M SUBQ (15:24)
[2019-07-01] MEDS ORDERED: TYLENOL325 MG PO (15:24)
[2019-07-01] MEDS ORDERED: PANTOPRAZOLE SO40 M1 PO (15:24)
[2019-07-01] MEDS ORDERED: NOVOLOG100 UNIT/1 SUBQ (15:24)
[2019-07-01] MEDS ORDERED: DIFLUCAN200 MG PO (15:24)
--- NOTE | 2019-07-04 19:16 | HC ---
[facility] [place] [address] CONSULTATION Name: ALEX FERRER Room #: 358-P [facility] IN M.R.#: [id number] Admission: 06/18/19 Attend Phys: Chuck Garcia MD Discharge: 07/01/19 Date of : 48 Report #: [id number] THIS REPORT FOR: //name// CC: Chuck Lyon DATE OF SERVICE: 06/29/2019 HISTORY OF PRESENT ILLNESS: This is a 69-year-old male patient who was seen by me because CT scan demonstrated a stroke. The stroke in the right parietal area. The patient has been pretty sick and it is not clear when the onset of the symptoms were and what the duration of the stroke is. The patient has a known history of atrial fibrillation and presently he is on combination of aspirin and Eliquis. Eliquis was started yesterday the best I can tell from the records. REVIEW OF SYSTEMS: Indicate that this patient has been in the hospital for abdominal pain and fever. He was pretty sick and has been seen by multiple physicians. He has a history of pancreatitis. Records indicate he also has a history of hypothyroidism, coronary artery disease, hypertension, hyperlipidemia. Some of the records indicate he also has a history of gout. During this hospitalization, he is being seen by multiple consultants. He has a permanent pacemaker. As I understand from the nurses, the pacemaker is not compatible with MRI. He had a finding consistent with SIRS. He had a history of prostate problems in the past. He developed some thrombocytopenia during this hospitalization. At this time, he was admitted with pseudocyst of pancreas. At one time, he also had hyponatremia. This was the 14-point review of system I could carry out in this patient, both from the record and from him. From him, the history is quite poor. FAMILY HISTORY: Unavailable from the patient. PAST MEDICAL HISTORY: Positive for pancreatitis and now a pseudocyst. FAMILY HISTORY: Also unavailable in this patient, but the records indicate that he had the use of tobacco in the past and he does have history of alcohol use. It is not clear how much. PHYSICAL EXAMINATION: Pretty limited. It looks like he can talk. He will say a few words. He was able to tell me what month it is. His memory and spontaneous conversation is poor. Cranial nerve examination 2-12 was attempted. I cannot tell whether he can move his eyes in all the directions or not. He does do somewhat unusual thing on the left side. His position sense could not be checked because he did not cooperate. His tone looks symmetrical. Tough to tell about reflexes. He does not appear to have ataxia. I could not look at the fundus. He is reasonably well-developed individual. He does not appear to [address] [address] CONSULTATION Name: ALEX FERRER Room #: 358-P DIS IN M.R.#: [id number] Admission: 06/18/19 Attend Phys: Chuck Garcia MD Discharge: 07/01/19 Date of : 46 Report #: [id number] be in any respiratory distress. He has a history of atrial fibrillation. His blood pressure is 166/82, respiration is 20, pulse is 70. His hemoglobin was 6.8 when he came in and it is still about 8.1.: His platelet count was low, but it has come up to 162. His GFR is good at 66. His T3 is low. His TSH is low and he is being followed by Endocrinology in that regard. IMPRESSION: 1. Cerebrovascular accident. 2. Numerous other medical problems as summarized above. RECOMMENDATION: 1. As far as CVA is concerned, no intervention can be done because the CVA is already showing up on the CT scan. 2. He should be closely watched for hemorrhagic conversion of the CVA because CVA probably is a cardioembolic and that typically become hemorrhagic. 3. We will check a carotid Doppler. 4. He has a pacemaker, which is incompatible with MRI and therefore we cannot do MRI in this patient, which was a desirable procedure. Thank you very much for this referral. I will follow this patient along with you. <ELECTRONICALLY SIGNED> By: Yogesh Lopez MD 07/04/191915 9 19 Yogesh Lopez MD /nt
--- NOTE | 2019-07-07 08:39 | HC ---
[facility] [place] [address] CONSULTATION Name: ALEX FERRER Room #: 358-P [facility] IN M.R.#: [id number] Admission: 06/18/19 Attend Phys: Chuck Garcia MD Discharge: 07/01/19 Date of : 48 Report #: [id number] THIS REPORT FOR: //name// CC: Chuck Lyon DATE OF SERVICE: 06/26/2019 REASON FOR CONSULTATION: Metabolic acidosis. REASON FOR PRESENTATION: Abdominal pain. HISTORY OF PRESENT ILLNESS: A 69-year-old who is well known to me. I had evaluated him last month for an acute kidney injury, complicating his pancreatitis. His acute kidney injury has improved with a creatinine of 1.2 upon discharge. He presented in the early part of June with yet another episode of abdominal pain and fever and was found to have pseudocysts. His creatinine has gone up to 2.0; however, this seems to be improving. He has mild acidosis related to his normal saline. I am being consulted to manage his metabolic acidosis. He currently is having major issues with abdominal pain and distention. He is followed by multiple consultants for his other comorbid conditions. PAST MEDICAL HISTORY: 1. Pancreatitis. 2. Acute kidney injury. 3. Hypertension. 4. Pulmonary hypertension. 5. Coronary artery disease. 6. Status post pacemaker. 7. Gout. ALLERGIES: None. FAMILY HISTORY: No known chronic kidney disease. SOCIAL HISTORY: He is . Denies drug or alcohol abuse. MEDICATIONS: 1. Eliquis. 2. Plavix. 3. Amlodipine. 4. Lisinopril. 5. Prednisone. 6. Pravastatin. [facility] [address] [address] CONSULTATION Name: ALEX FERRER Room #: 358-P [facility] IN M.R.#: [id number] Admission: 06/18/19 Attend Phys: Chuck Garcia MD Discharge: 07/01/19 Date of : 48 Report #: [id number] REVIEW OF SYSTEMS: GENERAL: No fever, but generalized weakness. CARDIOVASCULAR: No chest pain or palpitation, but significant for shortness of breath. PULMONARY: Significant for shortness of breath. GASTROINTESTINAL: Abdominal pain, nausea. GENITOURINARY: No frequency, no urgency. PHYSICAL EXAMINATION: VITAL SIGNS: The patient is alert. He is mildly short of breath. Temperature is 36.2, pulse rate is 82, blood pressure 167/84. HEAD AND NECK: No jugular venous distention. CHEST: Bilateral crackles. CARDIOVASCULAR: No rub detected. ABDOMEN: Distended. LOWER EXTREMITIES: No edema. LABORATORY DATA: Reviewed. Sodium is 148, chloride is 115, carbon dioxide is 20, BUN is 36, creatinine is 1.5. IMPRESSION AND PLAN: 1. Pancreatitis with pseudocysts. 2. Metabolic acidosis due to saline infusion. This is non-gap acidosis. 3. Acute kidney injury. 4. Coronary artery disease. 5. Anemia. 6. Thrombocytopenia. 7. Hypothyroidism. 8. Atrial fibrillation. 9. Pulmonary hypertension. 10. Discontinue IV fluid. 11. We will adjust his TPN to address his acidosis. 12. Continue with the diuresis once a day. 13. Watch urine output. 14. Avoid nephrotoxins. 15. Remains in a critically guarded condition. <ELECTRONICALLY SIGNED> By: Chele Ramos MD 07/07/19 0839 [id number] Chele Ramos MD /nt
--- NOTE | 2019-07-08 14:33 | HC ---
[facility] [place] [address] CONSULTATION Name: ALEX FERRER Room #: 358-P [facility] IN M.R.#: [id number] Admission: 06/18/19 Attend Phys: Chuck Garcia MD Discharge: 07/01/19 Date of : 48 Report #: [id number] THIS REPORT FOR: //name// CC: Chuck Lyno DATE OF SERVICE: 06/29/2019 HISTORY OF PRESENT ILLNESS: The patient is a 69-year-old male who was admitted for pancreatitis, noted to have abdominal pain, abdominal distention and fevers. He was noted to have severe pancreatitis with fever, leukocytosis and severe sepsis. He was noted to have a gallstone pancreatitis with pseudocysts. His course was complicated by hypoxemic respiratory failure and he has had a prolonged ICU stay. He has been treated for acute on chronic renal failure. He also had ileus versus small-bowel obstruction. He had an NG tube that was in placed and has now been removed. He has been on TPN. He has just now had advancement of his diet and the plan in discussion with nursing is to take him off the TPN. His course has been complicated by left-sided neglect noted on 06/28/[address] scan did confirm a subacute infarct, right posterior parietal lobe. Neurology has been consulted. We are seeing him in rehabilitation medicine consultation. PAST MEDICAL HISTORY: Includes hypertension, hyperlipidemia, prostatitis. ALLERGIES: No known drug allergies. MEDICATIONS: Please see the full medication listing. SOCIAL HISTORY: Lives in a house with his , did not utilize gait aids premorbidly, one step in. REVIEW OF SYSTEMS: No current complaints of chest pain, shortness of breath, abdominal discomfort. PHYSICAL EXAMINATION: GENERAL: A 69-year-old male in no obvious distress, seen in the ICU. VITAL SIGNS: Temperature 98.4, pulse 74, respirations 19, blood pressure 147/77. The patient is alert. HEENT: Facies are symmetric. NEUROLOGIC: Cranial nerves reveal definite left visual field neglect with an apparent homonymous hemianopsia to confrontation. He also has left-sided oliverio-coordination deficits with some decreased strength, probably a grade 4-/5 and left hemisensory decrease. Functional range of motion and strength of the right upper and right lower extremity without obvious focal weakness. He demonstrates left-sided neglect in therapies and is min assist with sit to stand. Gait was 120 feet mod assist without a device. [place] [address] CONSULTATION Name: ALEX FERRER Room #: 358-[facility]#: [id number] Admission: 06/18/19 Attend Phys: Chuck Garcia MD Discharge: 07/01/19 Date of : 48 Report #: [id number] demonstrating significant left-sided neglect. ASSESSMENT: A 69-year-old white male with the following problem list: 1. Right posterior parietal lobe subacute infarct. 2. Left-sided neglect. 3. Left-sided weakness with some oliverio coordination deficits and hemineglect. 4. Significant functional mobility and ADL deficits with cognition and visual perceptual problems. 5. Severe sepsis. 6. Severe acute pancreatitis with pseudocyst. 7. Gallstone pancreatitis. 8. Hypoxemic respiratory failure, which has improved, resolved. 9. Acute on chronic renal failure. This has resolved. 10. Ileus versus small-bowel obstruction. NG tube is out. He is now just had advancement of his diet. 11. History of atrial fibrillation. PLAN: The patient is a good candidate for an acute in-hospital inpatient rehabilitation stay. He has the new stroke and has multiple medical comorbidities and would be best followed by the multiple obiee consultant physicians while he rehabilitates for his stroke. Insurance precertification issues to be obtained and we will be glad to follow along with you regarding his rehab therapy needs. <ELECTRONICALLY SIGNED> By: Alfonzo Marshall MD 07/08/19 1433 [id number] [id number] Alfonzo Marshall MD /nt
--- NOTE | 2019-07-14 09:12 | HC ---
[facility] [place] [address] CONSULTATION Name: ALEX FERRER Room #: 358-P [facility] IN M.R.#: [id number] Admission: 06/18/19 Attend Phys: Chuck Garcia MD Discharge: 07/01/19 Date of : 46 Report #: [id number] THIS REPORT FOR: //name// CC: Chuck Lyon DATE OF SERVICE: 06/25/2019 HISTORY OF PRESENT ILLNESS: The patient is a 69-year-old male. I am asked to see him. He has been hospitalized it looks like for a few days now with an acute pancreatitis and a possible infected pseudocyst. He seems to be having some third spacing, but no hemodynamic compromise. He is a poor historian or is becoming slightly confused here. Denies him having any cardiac history, but states his brother and both his parents have had infarcts young. He is not completely clear on his home medications. He has allegedly been taking Eliquis at home, lisinopril 40, potassium 20, doxazosin, amlodipine 10, pravastatin 40, Plavix, colchicine and prednisone. He is denying any chest pain. He is currently on Protonix and Omnicef. PAST MEDICAL HISTORY: Positive for hypertension, hypercholesterolemia, prior tobacco use. No current alcohol use or ____ denies. Past medical history includes suspected coronary artery disease with stents and a permanent pacemaker in place, underlying atrial fibrillation it appears and possibly diabetes. SOCIAL HISTORY: He is he states. He denies any current alcohol or tobacco. PHYSICAL EXAMINATION: GENERAL: He will respond, but not completely appropriately. He is mildly and progressively becoming confused. VITAL SIGNS: Pulse is 70s, blood pressure 160/74. HEENT: Eyes show xanthelasmas. Pharynx is clear. Mouth shows dry mucous membranes. NECK: Shows preserved upstrokes. LUNGS: Show prolonged expiratory phase. CARDIOVASCULAR: Distant heart tones, S1, S2. ABDOMEN: Distended, plus minus fluid wave. He seems to be diffusely tender, but no acute rebound. Tender to deep palpation. EXTREMITIES: Reveal trace of edema. Distal pulses diminished, but intact. NEUROLOGIC: Appears nonfocal, although he is confused. SKIN: Warm and dry without xanthoma or ulcer. MUSCULOSKELETAL: Generalized arthritic changes. ASSESSMENT: [address] [address] CONSULTATION Name: ALEX FERRER Room #: 358-P [facility] IN M.R.#: [id number] Admission: 06/18/19 Attend Phys: Chuck Garcia MD Discharge: 07/01/19 Date of : 46 Report #: [id number] 1. Acute pancreatitis with possible infected pseudocyst. 2. History of coronary artery disease with stents. We will need confirmation from old records. 3. Permanent pacemaker. This was presumably placed for sick sinus and underlying atrial fibrillation of a permanent nature. 4. Hypertension. 5. Hypercholesterolemia. 6. Diabetes. 7. Systemic inflammatory response syndrome. 8. Benign prostatic hypertrophy. RECOMMENDATIONS AND PLAN: We will interrogate the pacemaker, obtain EKG. He is intermittently paced. I suspect underlying AFib. Echo Doppler, but not clear there were no overt failure here. We will obtain some old records. It maybe that he has seen Dr. Mccullough of the [facility], Dr. Mccullough as opposed to my partner Dr. Mccullough, we have no record of him in our office. We will follow with you. ____ any anticoagulation right now. We will consider continuing anticoagulation unless of course there would be need for an operative procedure then may need to switch to Lovenox. record of him in our office. We will follow with you. ____ any anticoagulation right now. We will consider continuing anticoagulation unless of course there would be need for an operative procedure then may need to switch to Lovenox. Thank you for asking me to assist in the care of this patient. <ELECTRONICALLY SIGNED> By: Deion Nelson MD, FACC 07/14/19 0912 [id number] [id number] Deion Nelson MD, FACC /nt
== END 2019-07-01 17:42 | DRG 871 ==
LOC: ER 15:04 → 2N 18:08 → EROBS 18:08 → 2N 18:41 → ICU 06-24 21:02 → 3W 06-30 12:25
PROVIDERS: Emergency Medicine; Hospitalist; Internal Medicine; Internal Medicine Gastroenterology; Internal Medicine Pulmonary Disease; Nurse Practitioner Acute Care; Specialist; ADMIT Internal Medicine
PROC: 0D9670Z Drainage of Stomach with Drainage Device, Via Natural or Artificial Opening (ICD-10-PCS; principal; 2019-06-22)
PROC: 02HV33Z Insertion of Infusion Device into Superior Vena Cava, Percutaneous Approach (ICD-10-PCS; principal; 2019-06-22)
PROC: 4B02XSZ Measurement of Cardiac Pacemaker, External Approach (ICD-10-PCS; 2019-06-30)
DX: A41.9 Sepsis, unspecified organism (principal); K85.90 Acute pancreatitis without necrosis or infection, unspecified; K85.10 Biliary acute pancreatitis without necrosis or infection; I63.9 Cerebral infarction, unspecified; E43 Unspecified severe protein-calorie malnutrition; J96.01 Acute respiratory failure with hypoxia; K65.9 Peritonitis, unspecified; E87.1 Hypo-osmolality and hyponatremia; K86.3 Pseudocyst of pancreas; K56.7 Ileus, unspecified; D62 Acute posthemorrhagic anemia; E87.0 Hyperosmolality and hypernatremia; R18.8 Other ascites; N17.9 Acute kidney failure, unspecified; E83.42 Hypomagnesemia; E07.81 Sick-euthyroid syndrome; E87.6 Hypokalemia; E78.5 Hyperlipidemia, unspecified; E87.5 Hyperkalemia; E03.9 Hypothyroidism, unspecified; N40.0 Benign prostatic hyperplasia without lower urinary tract symptoms; I25.10 Atherosclerotic heart disease of native coronary artery without angina pectoris; D69.6 Thrombocytopenia, unspecified; R73.9 Hyperglycemia, unspecified; I27.20 Pulmonary hypertension, unspecified; M10.9 Gout, unspecified; I48.0 Paroxysmal atrial fibrillation; E05.90 Thyrotoxicosis, unspecified without thyrotoxic crisis or storm; I12.9 Hypertensive chronic kidney disease with stage 1 through stage 4 chronic kidney disease, or unspecified chronic kidney disease; N18.9 Chronic kidney disease, unspecified; R65.20 Severe sepsis without septic shock; E78.00 Pure hypercholesterolemia, unspecified; I49.5 Sick sinus syndrome; Z95.5 Presence of coronary angioplasty implant and graft; Z95.0 Presence of cardiac pacemaker; Z79.82 Long term (current) use of aspirin; Z87.891 Personal history of nicotine dependence; Z68.27 Body mass index [BMI] 27.0-27.9, adult
CPT/HCPCS: 10078; 10081; 10203; 10879; 27000

== ENCOUNTER 2019-07-01 11:39 | Inpatient (IN) | payer OTHER ==
[~2019-07-01] VITALS: Ht 167.6 cm; Wt 77.1 kg
[~2019-07-01 11:39] MED LIST changes: +IRON325 PO
[2019-07-01] MEDS ORDERED: MERREM500 MG IV (15:24)
[2019-07-01] MEDS ORDERED: NOVOLOG100 UNIT/1 SUBQ (15:24)
[2019-07-01] MEDS ORDERED: ADULT LOW DOSE81 MG PO (15:24)
[2019-07-01] MEDS ORDERED: LANTUS100 UNIT/M SUBQ (15:24)
[2019-07-01] MEDS ORDERED: DIFLUCAN200 MG PO (15:24)
[2019-07-01] MEDS ORDERED: PANTOPRAZOLE SO40 M1 PO (15:24)
[2019-07-01] MEDS ORDERED: BYSTOLIC10 MG PO (15:24)
[2019-07-01] MEDS ORDERED: TYLENOL325 MG PO (15:24)
[2019-07-01 17:37] VITALS: BP 123/67
--- NOTE | 2019-07-01 19:16 | NUR ---
PT ARRIVED AT 1730 FROM 3W. ALERT AND ORIENTED*4, DELAYED/ SLUGGISH RESPONSES. HAS LEFT SIDED NEGLECT (PT ENCOURAGED TO REMEMBER LEFT SIDE). VITALS STABLE. DENIES PAIN. HAS BLE EDEMA, 1+. PULSES 2/2. SKIN IS INTACT. PT UP WITH 1 MIN ASSIST, GB AND WALKER AND TOLERATED WELL. TRANSFERED TO BED AFTER DINNER. REPORT GIVEN TO MEGAN NORIEGA.
[2019-07-01 19:50] VITALS: BP 141/59
[2019-07-02 05:46] LABS: HEMATOCRIT 28.7 % (42.0-52.0); HEMOGLOBIN 9.4 gm/dL (14.0-18.0); MCH 29.6 pg (26.0-34.0); MCHC 32.7 g/dL (28.0-37.0); MCV 90.5 fL (80.0-100.0); RBC 3.17 mil/uL (4.50-6.00); RDW 15.3 % (10.5-14.5); WBC 8.6 thou/uL (4.0-11.0)
--- NOTE | 2019-07-02 05:59 | NUR ---
ASSUMED CARE AT 1915, 07/01/19. PATIENT IS ALERT AND ORIENTED X3. HE IS CALM AND COOPERATIVE WITH STAFF AND PEERS. HE APPEARS WITH AN APPROPRIATE AFFECT, NO S/S OF PAIN OR DISTRESS. HE IS ABLE TO MAKE NEEDS KNOWN. PORT INTACT, WITH NO S/S OF INFXN. ASSESSMENT COMPLETE PATIENT COOPERATIVE. WILL CONTINUE TO MONITOR FOR CHANGES.
[2019-07-02 06:11] LABS: POTASSIUM 3.7 mmol/L (3.5-5.1)
[2019-07-02 09:22] VITALS: BP 155/88
--- NOTE | 2019-07-02 12:00 | NUR ---
chart review, pt up in recliner chair. a & o x 3 and able to make his needs know. intro to cm, transition of care and team meet. pt stated " ok to talk with my "/bianka. 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 live in house 2 steps with right sided hand rail to enter. has 2 wheeled walker and grab bar in tub/shower. will cont following as needed for dc needs.
--- NOTE | 2019-07-02 12:40 | NUR ---
PATIENT ALERT X4, DENIES PAIN, UP WITH MIN ASSIST GAIT BELT/WALKER, CALLS APPROPRIATLY, COMPLAIN WITH CARES. CONSULTS CALLED. HOLD PLAVIX PER CARDIOLOGY FOR POSSIBLE COLONOSCOPY.
[2019-07-02 20:00] VITALS: BP 160/70
--- NOTE | 2019-07-03 00:44 | NUR ---
PT ASSESSMENT DONE AND VSS. MED GIVEN AND WELL TOLERATED. FALL PRECAUTIONS IN PLACE. PT IMPULSIVE THIS SHIFT, NOT CALLING FOR ASSIST TO BR. JUST JUMPS UP OUT OF BED AND HEADS THAT DIRECTION. REFUSING TO USE URINAL. PT EDUCATED TO CALL FOR ASSIST. CUED TO USE WALKER. MINIMAL SPEECH. HOURLY ROUNDING. WILL CONTINUE TO MONITOR.
--- NOTE | 2019-07-03 07:07 | HC ---
[facility] [place] [address] CONSULTATION Name: ALEX FERRER Room #: 515-P ADM IN M.R.#: [id number] Admission: 07/01/19 Attend Phys: Alfonzo Marshall MD Discharge: Date of : 46 Report #: [id number] THIS REPORT FOR: //name// CC: Alfonzo Lyon DATE OF SERVICE: 07/02/2019 ENDOCRINE CONSULTATION NOTE REASON FOR CONSULTATION: Hypothyroidism, type 2 diabetes mellitus. HISTORY OF PRESENT ILLNESS: This is a 69-year-old male patient, whose medical background is significant for type 2 diabetes mellitus, hyperlipidemia, and hypertension. The patient had a lengthy hospital stay prior to this transfer to the rehab unit due to the issue of pancreatitis, which was complicated by pancreatic cyst as well as by sepsis and issues of metabolic acidosis. The patient had actually been transferred to the ICU for a few days due to these mounting issues. I was consulted when the patient was noted to have intermittent hyperglycemia, given the fact that he does not have a formal diagnosis of type 2 diabetes mellitus. When further investigated, the patient was noted to have a hemoglobin A1c of 6.4%, going with a diagnosis of new onset type 2 diabetes mellitus. During his hospital stay and with the increasing stress of his various medical issues and the need to use glucocorticoids at some point, the patient had blood glucose values that were well into the 200 mg/dL range. The patient was managed with a combination of low dose Lantus insulin 14 units daily and Humalog supplemental scale while in the ICU and he did fairly well with most blood glucose values remaining rather well controlled. Also, the patient was suspected of having hyperthyroidism based on a suppressed TSH of 0.012. However, further investigation with a free T3 and free T4 proved these to be within normal limits with his free T4 come back at 1.3. That said, the patient was labeled as having a sick euthyroid syndrome and proposed expectant monitoring pending the stabilization of his overall clinical outlook. The patient has been dealing with pancreatitis over the past 6 weeks and seems to have improved rather significantly over the past several days with less abdominal pain and near complete absence of nausea and vomiting. He has been able to tolerate p.o. intake rather well. The patient had also faced difficulties with fluctuating kidney function indices and his creatinine reached as high as 1.9 with a GFR that reached as low as 27, but along with his overall clinical improvement, these parameters have improved as well with his most recent GFR recording at 74. [facility] [address] [place] [address] CONSULTATION Name: ALEX FERRER Room #: 515-P [facility] IN .R.#: [id number] Admission: 07/01/19 Attend Phys: Alfonzo Marshall MD Discharge: Date of : 46 Report #: [id number] REVIEW OF SYSTEMS: CONSTITUTIONAL: Fatigue, tiredness, but not fever or chills or significant changes in body weight. HEENT: Negative for sore throat, ear pain, or ear drainage. PULMONARY: Occasional shortness of breath and cough, but no hemoptysis. CARDIAC: Noted for intermittent palpitations, but not chest pain, leg edema and ascites are present as well. GASTROINTESTINAL: Abdominal pain, nausea, vomiting, and ascites. No hematemesis. NEUROLOGY: The patient had bouts of confusion in the past, but has done well since then. No seizure activity, no loss of consciousness. SKIN: No rash, ulceration, or other major skin difficulties. MUSCULOSKELETAL: Nonspecific sporadic joint and muscle pain. Otherwise, review of systems is noncontributory unless mentioned in HPI. PAST MEDICAL HISTORY: 1. Type 2 diabetes mellitus. 2. Pancreatitis. 3. Sepsis. 4. Pancreatic pseudocyst. 5. Subacute right posterior parietal ischemic infarct. 6. Acute hypoxemic respiratory failure. 7. Anemia. 8. Thrombocytopenia. 9. Acute kidney injury, resolved. 10. Sick euthyroid syndrome. 11. Paroxysmal atrial fibrillation. 12. Coronary artery disease. 13. Hypertension. 14. Hyperlipidemia. ACTIVE MEDICATIONS: Acetaminophen 650 mg q. 6 hours p.r.n., Eliquis 5 mg b.i.d., aspirin 81 mg daily, atorvastatin 10 mg daily, Plavix 75 mg b.i.d., fluconazole 200 mg at bedtime, ferrous sulfate 325 mg daily, Glucophage 500 mg b.i.d., Humalog supplemental scale coverage, Bystolic 10 mg daily, Norvasc 10 mg daily, pantoprazole 40 mg daily, prednisone 10 mg daily. FAMILY HISTORY: Noncontributory. SOCIAL HISTORY: The patient denies use of tobacco, alcohol, or illicit drugs. PHYSICAL EXAMINATION: GENERAL: Pleasant male patient who is not in apparent pain or distress. VITAL SIGNS: Blood pressure is 155/88 mmHg, heart rate is 73 beats per minute, respirations 22 per minute, temperature 36.7 Celsius. CONSTITUTIONAL: The patient is sitting at the side of his bed, appears [facility] [address] [place] [address] CONSULTATION Name: ALEX FERRER Room #: 515-P ADM IN M.R.#: [id number] Admission: 07/01/19 Attend Phys: Alfonzo Marshall MD Discharge: Date of : 46 Report #: [id number] comfortable, not in apparent distress. HEENT: Anicteric sclerae. Intact extraocular motions. NECK: Supple, without JVD, carotid bruits or lymphadenopathy. I do not appreciate thyromegaly. CHEST: Noted for moderate air entry bilaterally without wheezes or crackles. HEART: Regular rate and rhythm without murmurs or gallops. ABDOMEN: Distended, somewhat tense, but soft and lax. No guarding, no organomegaly. Active bowel sounds. EXTREMITIES: Lower extremity exam noted for ankle edema bilaterally. Good pedal pulses. NEUROLOGIC: Awake, alert and oriented to time, place and person. The rest of his examination is nonfocal. PSYCHIATRIC: Flat mood and affect, seems a bit confused at times, and unable to answer all questions with accuracy. LABORATORY TESTING: Blood glucose values were predominantly below 150 mg/dL over the past 48 hours, his blood glucose this morning was 67 mg/dL, sodium 139, potassium 3.7, chloride 102, CO2 of 30, anion gap 7, creatinine 1.0, osmolality 267, AST 28, amylase 187, lipase 155, total bilirubin 0.2, calcium 8.0, phosphorus 3.1, magnesium 1.8, uric acid 3.5, alkaline phosphatase 106, ALT 45, total protein 5.8, albumin 2.4, GFR 74. Lactic acid 1.0. Troponin undetectable. Free T4 1.3. CRP 104.7, white blood count 8.6, hemoglobin 9.4, hematocrit 28.7, platelets 177. TSH 0.012. Hemoglobin A1c 6.4. ASSESSMENT AND PLAN: 1. Type 2 diabetes mellitus. As noted above, this is a new diagnosis for the patient as no such formal diagnosis existed prior to his admission. This was based on his documented hemoglobin A1c and blood glucose values. Given his active issues with pancreatitis, the patient is not and will never be a good candidate for DPP-4 inhibitors or GLP-1 analogues. Given his worsening kidney function during his hospital stay, metformin was precluded as a choice and given his unreliable food intake, I have ordered the use of sulfonylureas as well. With this outlook, the patient was placed on a combination of Lantus insulin 14 units daily and a Humalog supplemental scale and had done remarkably well. Over the past few days, the patient has recovered nicely and was transferred out of the ICU and then to the rehab unit and has resumed nearly full p.o. intake. With that, his blood was glucose rather low this morning at 67 mg/dL. The down titration of glucocorticoids could have certainly contributed to this lesser need for insulin therapy. Given this outlook, I have stopped his Lantus insulin completely and resorted to metformin 500 mg b.i.d. while maintaining the Humalog supplemental scale support to be used as needed. Blood glucose monitoring will commence at a.c. and at bedtime. 2. Sick euthyroid syndrome. The patient's thyroid function studies were consistent with a sick euthyroid syndrome. Given this determination, the patient is not indicated for active therapy and [place] [address] CONSULTATION Name: ALEX FERRER Room #: 515-P ADM IN M.R.#: [id number] Admission: 07/01/19 Attend Phys: Alfonzo Marshall MD Discharge: Date of : 46 Report #: [id number] monitoring with thyroid function studies when he is further stable in 1-2 months from now. 3. Hyperlipidemia. The patient is to continue on atorvastatin 10 mg daily. 4. Hypertension. The patient is currently on treatment with Norvasc and he is to maintain the same as we monitor his status. 5. Pancreatitis. Seems to be resolving. The patient is currently clinically stable. I certainly appreciate this consultation. <ELECTRONICALLY SIGNED> By: Jakub Bianchi MD 07/03/19 [phone] [id number] Jakub Bianchi MD /nt
[2019-07-03 08:51] VITALS: BP 125/59
--- NOTE | 2019-07-03 10:12 | NUR ---
cm received 2 phone calls from pt geovanni [phone], she has question about dx of stroke, diet, meals, and transfers to another acute rehab and hospital. education and re- education that would pass on information to associate marketing manager and MD to have associate marketing manager call her back " my daughter is speech pathologist and know more so can call her to [phone]"/geovanni. cm passed on information and concerns to ASSOCIATE PRODUCER. will cont following as needed for dc needs.
--- NOTE | 2019-07-03 15:01 | NUR ---
REC addition of LOW FAT dietary restrictions (on top of low fiber) given recent necrotizing pancreatitis. RD helped pt make out next 4 meals with lower fat entrees/protein chosen.
[2019-07-03 19:45] VITALS: BP 137/77
--- NOTE | 2019-07-03 19:51 | NUR ---
has attempted x2 to get up without calling for assist triggering CHAIR ALARM, MINIMALLY VERBAL BUT WILL RESPOND TO YES/NO QUESTIONS-BLUNTED AFFECT. USAING ROLLER WALKER TO AMBULATE TO AND FROM BATHROOM AND HAS REMAINED CONTINENT OF BOWEL AND BLADDER. DENIES PAIN. REPORTS GOOD APPETITE AND TAKES MEALS AND SUPPLEMENTS WELL. IS NOTED TO HAVE TRACE PEDAL EDEMA TO FEET BILAT.
--- NOTE | 2019-07-04 03:42 | NUR ---
assumed care at approx 1900 evening 07/03. pt lying in bed with head of bed elevated dozing and resting. pt awoke easily for hs meds and took with water tolerating well. pt up to bathroom to void in toilet and also had bm 07/03 evening. pt appears to be sleeping soundly with hourly rounding checks. bed alarm on and call light in reach. will continue to monitor.
[2019-07-04 07:40] VITALS: BP 120/68
--- NOTE | 2019-07-04 18:39 | NUR ---
AAOX3 PLEASANT AND COOPERATIVE. WORKS WELL WITH THERAPY. AT BEDSIDE. GOOD APPETITE FOR MEALS. DENIES PAIN.
[2019-07-04 19:56] VITALS: BP 132/66
--- NOTE | 2019-07-05 00:59 | NUR ---
assumed care at approx 1900 evening 07/04. pt lying in bed with head of bed elevated at change of shift dozing off and on. spouse at bedside stayed until approx 2100. pt took hs meds with water tolerating well. pt appears to be sleeping soundly with hourly rounding checks. bed alarm on and call light in reach. will continue to monitor.
[2019-07-05 07:50] VITALS: BP 123/71
--- NOTE | 2019-07-05 14:45 | NUR ---
ASSUMED CARE OF PT AT 0715. PT IS A&OX4, POSSIBLY FORGETFUL & IMPULSIVE. DENIES PAIN. IS UP WITH 1 ASSIST, GB, WALKER TO BATH ROOM. FALL PRECAUTIONS & HOURLY ROUNDING MAINTIANED. LABS & VITALS REVIEWED. PT HAS HAD SHOWER TODAY FAMILY ASSISTED. HAS ACCU CHECKS WITH MEALS. IS ON ROOM AIR. IS CURRENLTY UP IN RECLINER. ALARM ON. CALL LIGHT WITHIN REACH. WILL CONTINUE TO MONITOR.
[2019-07-05 20:15] VITALS: BP 115/63
[2019-07-06 05:56] LABS: HEMATOCRIT 29.3 % (42.0-52.0); HEMOGLOBIN 9.8 gm/dL (14.0-18.0); MCH 29.7 pg (26.0-34.0); MCHC 33.4 g/dL (28.0-37.0); MCV 89.1 fL (80.0-100.0); RBC 3.29 mil/uL (4.50-6.00); RDW 15.6 % (10.5-14.5); WBC 6.5 thou/uL (4.0-11.0)
[2019-07-06 06:12] LABS: ALBUMIN 2.6 g/dL (3.4-5.0); CALCIUM 8.4 mg/dL (8.5-10.1); CREATININE 1.1 mg/dL (0.7-1.3); MAGNESIUM 1.3 mg/dL (1.8-2.4); POTASSIUM 3.4 mmol/L (3.5-5.1); TOTAL BILIRUBIN 0.4 mg/dL (<0.1-1.0); TOTAL PROTEIN 5.9 g/dL (6.4-8.2)
[2019-07-06 08:00] VITALS: BP 111/68
[2019-07-06 19:40] VITALS: BP 120/69
--- NOTE | 2019-07-06 20:03 | NUR ---
ASSUMED CARE OF PT AT 0715.REPORTS SLEPT GOOD LAST NIGHT. PT IS A&OX4, FORGETUL AT TIME. DENIES PAIN. IS UP WITH 1 ASSIST, GB, WALKER TO BATH ROOM. PT HAS BEEN UP AND PARTICIPATED WITH THERAPISTS. DAUGHTER WAS HERE, DISCUSSED WITH PHYSICAL THERAPIST WHO THINKS PT'S DAUGHTER IS APPROPRIATE TO ASSIST PT TO GO TO BATHROOM AND GO AROUND THE HORN. SHE WORKS SPEECH THERAPIST AT ANOTHER HOSPITAL AND AWARE OF FALL PREVENTION EDUCATION. NOTIFIED DR. BEJARANO AND RECEIVED ORDER FOR FAMILY ASSIST WITH TRANSFER. [facility] C[facility]. ENCOURAGED PT TO VOICE HIS NEEDS. MEDS GIVEN WITH [facility]. PT HAS BEEN ON ACHS 4X, BS HAS BEEN STABLE. DENIES DM, PREDNISON IS ON HOLD. DISCUSSED WITH [employer] TO SEE IF WE CAN D/C ACHS. SHE SUGGESTED TO CALL [employer]. CALLED AND LEFT A MESSAGE. NO RESPONSE AT THIS MOMENT. WILL CONTINUE TO MONITOR TOMORROW. FALL PRECAUTIONS & HOURLY ROUNDING MAINTIANED. LABS & VITALS REVIEWED. ALARM ON. CALL LIGHT WITHIN REACH. GAVE REPORT TO NIGHT NURSE TO CONTINUE TO MONITOR.
--- NOTE | 2019-07-06 21:27 | HC ---
[facility] [place] [address] CONSULTATION Name: ALEX FERRER Room #: 515-P ADM IN M.R.#: [id number] Admission: 07/01/19 Attend Phys: Alfonzo Marshall MD Discharge: Date of : 48 Report #: [id number] THIS REPORT FOR: //name// CC: Alfonzo Lyon DATE OF SERVICE: 07/05/2019 ATTENDING PHYSICIAN: Alfonzo Marshall MD PRINTING PLATE MAKER: Kraig Coronel, PhD CLINICAL PRESENTATION: The patient is a 69-year-old bilingual male admitted to the rehabilitation unit for comprehensive inpatient rehabilitation program. The patient was initially admitted to the hospital with fever, abdominal pain and diagnosed with severe sepsis due to gallstone pancreatitis with pseudocyst. His diagnoses on admission also include acute hypoxic respiratory failure, AK on chronic kidney disease and ileus. He subsequently had a change in mental status and a CT scan revealed a subacute infarction in the right posterior parietal lobe. His assessment on the admission to the rehabilitation unit includes a subacute right parietal CVA, left neglect and weakness, gallstone necrotizing pancreatitis with pseudocyst, AK on CKD, improved, anemia, recent ileus, thrombocytopenia, coronary artery disease, hypertension and hyperlipidemia. A complete description of his medical condition, history and medications can be found in his medical record. Neuropsychological consultation was requested to provide assistance in the assessment of cognitive and emotional status and to provide recommendations and services. Prior to this most recent medical event, he was living independently with his in their home. The patient has 2 children. He is originally from the [place]. One of his children currently reside there. He has a supportive family. His daughter and were present during my assessment. The patient is a high school graduate. He indicates that he has been in the [place] for approximately 30 years. 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 As indicated, he was driving and independent with instrumental activities of daily living. TECHNIQUES UTILIZED: Clinical interview, review of medical records, staff consultation and behavioral observation, mini mental status exam 2 standard version, clock drawing and brief verbal fluency assessment (animals) and clinical interview -- family, daughter and . [facility] [address] [place] [address] CONSULTATION Name: ALEX FERRER Room #: 515-P [facility] IN M.R.#: [id number] Admission: 07/01/19 Attend Phys: Alfonzo Marshall MD Discharge: Date of : 48 Report #: [id number] EXAMINATION FINDINGS: The patient was pleasant and cooperative with the assessment. Verbal expression was at a reduced rate. He does not report auditory or visual hallucinations. There is no evidence of aphasia. His thoughts are logical and goal oriented. Speed of processing is reduced. Decreased speed of auditory processing and verbal expression is also noted by his family. He does not report symptoms of cognitive disorder. Memory and word finding are reported as within normal limits. He indicates a decreased appetite, tiredness and fatigue and anxiety with a mild degree of depression. The patient also describes a left neglect and difficulty in spatial orientation. As indicated, speech is slow and auditory processing delayed. His performance on the MMSE 2 brief version is extremely low with a raw score of 12/16, which is a T score of 28 and percentile rank of 1. He was 3/3 for initial registration, 3/5 for orientation to time, 5/[address] and 1/3 for immediate recall of 3 items after a brief time delay and distraction. Performance on the MMSE 2 standard version is extremely low with a raw score of 21/30, which is a T score of 26 and percentile rank of 1. He was 2/5 for serial 7s with a very prolonged delay in response, 2/2 for naming, 1/1 for repetition, 3/3 for auditory comprehension. He could read and follow single command. The patient was unable to copy a simple geometric design or write a sentence. Clock drawing was severely impaired for visual spatial organization and construction. The patient is presenting with deficits in immediate recall, sustained attention and concentration, and visual spatial construction. Additionally, category fluency was at the 8th percentile suggesting deficits in executive functioning. 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 Adjustment disorder with anxiety and depressed mood. RECOMMENDATIONS: The patient will require increased assistance with the management of medication, finances and nutrition. Driving should be discontinued until his recovery is more complete and a more thorough neuropsych assessment is completed. Additionally, severe deficits in visual spatial construction place him at a great safety risk for potential injury with left neglect. [facility] [address] [place] [address] CONSULTATION Name: ALEX FERRER Room #: 515-P [facility] IN M.R.#: [id number] Admission: 07/01/19 Attend Phys: Alfonzo Marshall MD Discharge: Date of : 48 Report #: [id number] Thank you very much for allowing me to provide the consultation on this patient. <ELECTRONICALLY SIGNED> By: Kraig Coronel, PhD 07/06/192126 1655 50 Kraig Coronel, PhD /nt
--- NOTE | 2019-07-06 23:14 | NUR ---
PT ASSESSMENT COMPLETED AND VSS. MEDS GIVEN ORDERED AND WELL TOLERATED. FALL PRECAUTIONS IN PLACE. MODERATE ASST TO THE BATHROOM WITH GAIT/WALKER. UNSTEADY AT TIMES. LEFT NEGLECT CONTINUES. SLEEPING WELL. DENIES NEEDS. WILL CONTINUE TO MONITOR FREQUENTLY.
[2019-07-07 07:55] VITALS: BP 139/70
--- NOTE | 2019-07-07 09:12 | NUR ---
ASSUMED CARE OF PT AT 0715.REPORTS SLEPT GOOD LAST NIGHT. PT IS A&OX4, FORGETUL AT TIME. DENIES PAIN. IS UP WITH 1 ASSIST, GB, WALKER TO BATH ROOM. VSS ON RA. MORNING MEDS GIVEN ORDERED. PT WAS UP TO DINNING ROOM, ATE BREAKFAST. WORKING WITH OT AND WILL HAVE SHOWER TODAY. TALKED WITH DR. BUSBY THIS AM AND REQUEST IF METFORMIN CAN BE CHANGE TO 5PM INSTEAD OF 9PM AND BS CHECK BID SINCE PT'S BS HAS BEEN STABLE. HE IS OK WITH THAT. MAKE CHANGE IN [employer]. OFFERED SUPPORTIVE CARE. ENCOURAGED PT TO VOICE HIS NEEDS. MEDS GIVEN WITH [facility]. FALL PRECAUTIONS & HOURLY ROUNDING MAINTIANED. WILL CONTINUE TO MONITOR.
--- NOTE | 2019-07-07 13:51 | NUR ---
TEAM MTG: CHECK WITH [facility] [employer]SPORT, ABILITY [facility] DAY PROGRAM ( 24HR SUPERVISION INITIALLY) PLAN DC ON 07/17/19 IF INS WILL APPROVE, POSSIBLE RIDE [facility]OS PROGRAM.
--- NOTE | 2019-07-07 17:20 | NUR ---
NM FOLLOWED UP WITH PATIENT AND PT'S FRANCES, WHO WAS AT THE BEDSIDE PER THEIR REQUEST FOR UPDATES FROM TEAM CONFERENCE. REVIEWED PT'S PROGRESS THUS FAR, INCLUDING BARRIERS TO DISHCARGE AND HOW WE ARE ADDRESSING THESE, WELL SAFETY CONCERNS FOR HOME. TENTATIVE DC DATE OF 07/17 WAS DISCUSSED, AND PT'S AND PT STATED THAT THEY WANTED TO GO HOME SOONER THAN THIS. FRANCES STATED THAT SHE PLANNED TO TAKE SOME TIME OFF FROM WORK TO HELP PT GET ACCLIMATED TO HOME AND ENSURE THAT HE IS SAFE TO LEAVE ALONE. SHE ALSO STATED THAT SHE WANTED TO GET HIM HOME BEFORE HIS APPOINTMENT WITH THE DOCTOR ON SATURDAY. SHE DID NOT SAY WHAT DOCTOR THEY WANTED TO SEE. INFORMED HER THAT WE WOULD HAVE TO TALK WITH THE THERAPY TEAM AND THE DOCTOR IF THEY WERE WANTING TO DC HOME EARLY, TO MAKE SURE THAT THIS WOULD BE A SAFE PLAN. LATER CONVERSATION WITH REGINALDO, PHYSICAL THERAPIST, REVEALED THAT FROM A PT PERSPECTIVE, THE PT WOULD BENEFIT FROM ADDITIONAL INTENSIVE THERAPIES TO MAXIMIZE HIS FUNCTION AND SAFETY FOR HOME, AND A DC THIS SATURDAY IS NOT IDEAL. PT'S DAUGHTER WILD CAME TO THE DESK NM WAS LEAVING FOR THE DAY, AND STATED THAT SHE ALSO THINKS THAT THE PT NEEDS TO STAY FOR ANOTHER WEEK TO MAKE SURE THAT HE IS SAFE TO GO HOME, AND THAT SHE WILL TALK WITH HER MOTHER ABOUT THIS. SHE STATED THAT THE APPOINTMENT ON SATURDAY WAS WITH THE GI DOCTOR AT [facility], AND NM REASSURED HER THAT OUR OWN GI DOCTORS ARE CONTINUING TO FOLLOW HERE, AND THAT THIS APPOINTMENT COULD BE RESCHEDULED FOR A LATER TIME AFTER DISCHARGE. WILD (DTR) STATED THAT SHE SUPPORTS PT STAYING ANOTHER WEEK WITH DC ON 07/17, AND THAT SHE WILL TALK WITH HER MOTHER ABOUT THIS.
[2019-07-07 19:35] VITALS: BP 103/61
--- NOTE | 2019-07-07 23:42 | NUR ---
PT ASSESSMENT COMPLETED AND VSS. MEDS GIVEN ORDERED AND WELL TOLERATED. FALL PRECAUTIONS IN PLACE. UP TO THE BATHROOM WITH ASST/GAIT/WALKER. LEFT SIDE NEGLECT. ENC PT TO SLOW DOWN WHEN WALKING TO THE BATHROOM FOR SAFETY. SLEEPING WELL. WILL CONTINUE TO MONITOR FREQUENTLY.
[2019-07-08 08:00] VITALS: BP 98/65
--- NOTE | 2019-07-08 13:30 | NUR ---
cm returned message from pt wanted to speak with cm. cm called geovanni back " you i spoke with yesterday and i want to let you know i think cont rehab till 07/17/19 is ok, i have form for dr to fill out and will be up around 3 today to get to "/geovanni. will cont following as needed for dc needs.
--- NOTE | 2019-07-08 19:32 | NUR ---
ASSUMED CARE OF PT AT 0715. PT IS A&OX1-2, FORGETFUL, AND VITAL SIGNS ARE STABLE. DENIES PAIN AND PARTICIPATED IN THERAPIES. ACCU CHECKS BID AND MANAGED WITH PO MEDICAITONS. LEFT SIDE NEGLECT. FALL PRECAUTIONS IN PLACE AND NURSING WILL CONTINUE TO MONITOR.
[2019-07-08 20:00] VITALS: BP 123/72
--- NOTE | 2019-07-09 02:20 | NUR ---
ASSESSMENT: PT REMAIN ALERT AND ORIENT TIMES THREE, PER ORDERS, PT IS ALLOW TO WALK AROUND THE ROOM WITH DAUGHTER AND NO OTHER DEVICES. PT IS IMPULSIVE AND WHEN HE CALLS OUT TO USE THE RESTROOM HE WILL GET OOB AND HEAD TOWARDS THE RR WITHOUT ASSISTANCE. SOON THE PT CALLS OUT, STAFF NEEDS TO BE ENROUTE TO ROOM AT THAT TIME FOR PT'S SAFETY. VSS, AFEBRILE. SLOW PROGRESS TOWARDS DC GOALS, WILL CONTINUE TO MONITOR.
[2019-07-09 05:39] LABS: ABSOLUTE NEUTROPHILS 2.6 thou/uL (1.4-8.2); BASOPHILS 1.5 % (0.0-2.0); EOSINOPHILS 1.8 % (0.0-3.0); HEMATOCRIT 29.1 % (42.0-52.0); HEMOGLOBIN 9.7 gm/dL (14.0-18.0); LYMPHOCYTES 26.5 % (24.0-44.0); MCH 29.8 pg (26.0-34.0); MCHC 33.4 g/dL (28.0-37.0); MCV 89.3 fL (80.0-100.0); MONOCYTES 7.7 % (1.0-8.0); PLATELET COUNT 141 thou/uL (150-400); POLYS 62.5 % (36.0-66.0); RBC 3.26 mil/uL (4.50-6.00); RDW 15.5 % (10.5-14.5); WBC 4.2 thou/uL (4.0-11.0)
[2019-07-09 05:43] LABS: CALCIUM 8.5 mg/dL (8.5-10.1); CREATININE 1.2 mg/dL (0.7-1.3); MAGNESIUM 1.4 mg/dL (1.8-2.4); POTASSIUM 3.5 mmol/L (3.5-5.1)
[2019-07-09 10:51] VITALS: BP 108/58
--- NOTE | 2019-07-09 13:39 | NUR ---
printed off [employer] transportation nelson, cm left for pt and family to fill out. cm left message with [employer] to see what will disqualify pt from program. will cont following as needed for dc needs.
--- NOTE | 2019-07-09 13:41 | NUR ---
ASSUMED CARE OF PT AT 0715. PT IS A&OX2 AND VITAL SIGNS ARE STABLE. PT DENIES PAIN AND PARTICIPATING IN THERAPIES. IMPULSIVE AND REQUIRES SUPERVISION AND SOME CUES FOR SAFETY. FALL PRECAUTIONS IN PLACE AND NURSING WILL CONTINUE TO MONITOR.
[2019-07-09 19:35] VITALS: BP 136/78
--- NOTE | 2019-07-10 00:27 | NUR ---
UP IN HORN WITH MIN ASSIST. MEDS WITH APPLESAUCE. DECIDED TO SKIP GLUCOPHAGE WITH DINNER WHEN BLOOD SUGAR WAS 85. FAMILY HERE AND APPRECIATED LA PAPERS DONE BY SHAHLA
[2019-07-10 09:43] VITALS: BP 93/57
[2019-07-10 20:22] VITALS: BP 100/60
--- NOTE | 2019-07-10 22:09 | NUR ---
ASSUMED CARE OF PT AT 0715. PT IS A&OX4 AND VITAL SIGNS ARE STABLE. PT INITIATING CONVERSATIONS ABOUT MEDICAITONS AND HEALTH MANAGEMENT. PT REPORTS HAVING PAIN IN HIS RIGHT ANKLE DUE TO GOUT FLAREUP, ORDERS FOR PREDNISONE AND COLCHICINE. AT SHIFT CHANGE, PT REPORTS THAT AT HOME HE TAKES THOSE MEDICAITONS EVERY 8 HOURS. REPORTS THAT HE IS NOT DIABETIC AND WOULD LIKE TO TALK WITH ENDOCRINE WHEN POSSIBLE ABOUT DIABETIC MEDICATIONS. CONCERNS EXPRESSED TO NIGHT NURSE DURING REPORT. FALL PRECAUTIONS IN PLACE AND NURSING WILL CONTINUE TO MONITOR.
--- NOTE | 2019-07-11 04:55 | NUR ---
assumed care at approx 1900 evening 07/10. pt lying in bed with head of bed elevated at change of shift with daughter at bedside. daughter assisting pt up to bathroom without difficulty. pt alert and oriented x4, appropriate and cooperative. pt took hs meds with applesauce tolerating well. pt appears to be sleeping soundly with hourly rounding checks. bed alarm on and call light in reach. will continue to monitor.
[2019-07-11 10:43] VITALS: BP 141/64
--- NOTE | 2019-07-11 16:47 | NUR ---
AAOX3 PLEASANT. WANTING TO BE DISHCARGED TODAY, REMINDED OF PLAN TO STAY UNTIL SATURDAY. ATE MEALS IN DINNING ROOM WITH GOOD APPETITE. WORKS WELL WITH THERAPY. DENIES PAIN. AMBLATES WITH SLOW STEADY GAIT. DENIES PAIN.
[2019-07-11 20:00] VITALS: BP 115/72
--- NOTE | 2019-07-12 02:55 | NUR ---
ASSESSMENT: PT REMAIN ALERT AND ORIENT TIMES FOUR. VSS, UP AD CORDELL TO BR WITH SBA. PT DENIES PAIN, SOB AND N/V. GOOD PROGRESS TOWARDS DC GOALS, WILL CONTINUE TO MONITOR.
[2019-07-12 07:45] VITALS: BP 128/73
--- NOTE | 2019-07-12 15:36 | NUR ---
ASSUMED CARES AT 0700. PT AWAKE, ORIENTED*4. DENIES PAIN. VITALS REMAIN STABLE. PT CONTINUES TO HAVE LEFT-SIDED NEGLECT, ENCOURAGED TO PAY ATTENTION TO LEFT SIDE. UP WITH 1 MIN ASSIST, GB AND WALKER AND TOLERATED WELL. Q1H VISUAL CHECKS. CALL LIGHT WITHIN REACH. FALL PRECAUTIONS IN PLACE
[2019-07-12 20:42] VITALS: BP 144/74
--- NOTE | 2019-07-13 01:46 | NUR ---
PT ALERT AND ORIENTED X 4, FORGETFUL. CAN BE IMPULSIVE AT TIMES. LEFT SIDED NEGLECT. PT TOOK HS MEDS IN APPLESAUCE WITHOUT DIFFICULTY. PT DENIES PAIN OR DISCOMFORT. BED ALARM ON FOR SAFETY. PT APPEARS TO BE SLEEPING ON HOURLY ROUNDS.
[2019-07-13 08:10] VITALS: BP 132/72
--- NOTE | 2019-07-13 12:00 | NUR ---
[facility] FAXED TO [facility]. RIDE [facility]OS MATILDE GIVEN TO PT FOR HIM AND FAMILY TO COMPLETE. WILL CONT FOLLOWING NEEDED FOR DC NEEDS.
--- NOTE | 2019-07-13 16:24 | NUR ---
ASSUMED CARE OF PT AT 0715. PT IS A&OX4 AND VITAL SIGNSS ARE STABLE. DENIES PAIN AND PARTICIPATED IN THERAPIES. PT REFUSED METFORMIN THIS AM DUE TO CONTINUED CONFUSION ABOUT DIABETES DIAGNOSIS. CONTACTED PROVIDER AND CLARIFIED ORDERS AND EDUCATION FOR PT. ORDERS FOR DAILY ACCU CHECK AT 0700 AND CONTINUED METFORMIN ORDERS. FALL PRECAUTIONS IN PLACE AND NURSING WILL CONTINUE TO MONITOR.
[2019-07-13 19:53] VITALS: BP 114/69
--- NOTE | 2019-07-14 00:47 | NUR ---
PT ASSESSMENT COMPLETED AND VSS. MEDS GIVEN ORDERED AND WELL TOLERATED. SUPPORTIVE FAMILY IN TO SEE PT. FALL PRECAUTIONS IN PLACE. PT SLEEPING WELL. VOIDING LARGE AMOUNT OF YELLOW URINE. WILL CONTINUE TO MONITOR FREQUENTLY.
--- NOTE | 2019-07-14 09:52 | NUR ---
PT DAILY CARE TOOL DOCUMENTED AT 0948 IS A RECREATED DOCUMENT WITH INFORMATION GATHERED FROM PT, OT, AND NURSING DAILY CARE TOOLS IN ORDER TO CREATE AN ACCURATE TEAM CONFERENCE REPORT WITH ACCURATE LEVELS OF ASSIST.
--- NOTE | 2019-07-14 10:39 | H ---
[facility] [place] [address] HISTORY AND PHYSICAL Name: ALEX FERRER Room #: 515-P ADM IN M.R.#: [id number] Admission: 07/01/19 Attend Phys: Alfonzo Marshall MD Discharge: Date of : 46 Report #: [id number] THIS REPORT FOR: //name// CC: Alfonzo Lyon DATE OF SERVICE: 07/01/2019 HISTORY AND PHYSICAL, POST ADMISSION PHYSICIAN EVALUATION HISTORY OF PRESENT ILLNESS: The patient has now been admitted for acute in-hospital inpatient rehabilitation. Please see my prior consult note dictation as well as the full admission history and physical. I agree with the findings and examination and assessment and plan as noted in the history and physical. The patient had originally been admitted on 06/29/2019 and was diagnosed with a right posterior parietal lobe subacute infarct with left-sided neglect and left-sided weakness. Functional mobility and ADL deficits. His course was complicated by severe sepsis with severe acute pancreatitis with pseudocyst. This was noted to be gallstone pancreatitis. He had hypoxemic respiratory failure as well as acute on chronic renal failure and also had ileus versus small-bowel obstruction with an NG tube subsequently removed. He was noted to gradually improve, but has significant functional deficits and the left-sided neglect and weakness and has been admitted for acute in-hospital inpatient rehabilitation. PAST MEDICAL HISTORY, ALLERGIES AND HABITS: Please see the prior history and physical. SOCIAL HISTORY: Lives in a house with his , did not utilize gait aids premorbidly, one step in. REVIEW OF SYSTEMS: No specific complaints of chest pain, shortness of breath, abdominal discomfort. PHYSICAL EXAMINATION: GENERAL: A 69-year-old male in no obvious distress. He was alert, pleasant. VITAL SIGNS: Last recorded temperature 36.7, pulse 73, respirations 22, blood pressure 155/88. HEENT: Facies appeared symmetric. CHEST: Sounded clear to auscultation. CARDIOVASCULAR: Regular rate and rhythm. ABDOMEN: Mild obesity, bowel sounds positive, nontender. GENITOURINARY AND RECTAL: Deferred. EXTREMITIES: He has definite significant left-sided visual field neglect with homonymous hemianopsia. He does have decreased left-sided coordination upper [facility] [address] [place] [address] HISTORY AND PHYSICAL Name: ALEX FERRER Room #: 515-P [facility] IN [facility].#: [id number] Admission: 07/01/19 Attend Phys: Alfonzo Marshall MD Discharge: Date of : 46 Report #: [id number] and lower extremity with fine finger dexterity and coordination testing. Strength is probably grade 4 to 4-/5 right upper and right lower extremity without obvious focal weakness. Functionally, he is needing min assist for basic transfers and has been needing mod assist with ambulation problems with visual field neglect, difficulty with attention with problems with dual tasking, minimal arm swing on the left. ASSESSMENT: A 69-year-old male with the following problem list: 1. Right posterior parietal lobe subacute infarct. 2. Left-sided neglect. 3. Left-sided weakness with oliverio coordination deficits. 4. Severe sepsis. 5. Severe acute pancreatitis with pseudocyst. 6. Gallstone pancreatitis. 7. Hypoxemic respiratory failure. 8. Acute on chronic renal failure. 9. Episode of ileus versus small-bowel obstruction. 10. History of atrial fibrillation. PLAN: The patient has been admitted for acute in-hospital inpatient rehabilitation. From a postadmission physician evaluation perspective, there are no relevant changes since the preadmission screening. Please see the above review of prior and current medical and functional conditions and comorbidities. Please see the patient's previous and current functional status. As far as risk of complications, the patient has multiple medical comorbidities as noted above. Initial plan of care involves the interdisciplinary acute inpatient rehabilitation program with goal of maximizing his functional independence, he can hopefully return back to his prior living situation. Measurable functional goals would be for the patient to become modified independent with transfers, mobility, ADLs as well as cognition and ideally visual perceptual issues for at least to significantly improve. His prognosis is reasonably good. Estimated length of stay probably approximately 2 weeks pending progress. Potential barriers would include his above noted comorbidities and the decreased functional status. <ELECTRONICALLY SIGNED> By: Alfonzo Marshall MD 07/14/19 1039 1148 1211 Alfonzo Marshall MD /[facility]
--- NOTE | 2019-07-14 10:39 | PLAN ---
[facility] [place] [address] REHAB UNIT PLAN OF CARE Name: ALEX FERRER Room #: 515-P ADM IN M.R.#: [id number] Admission: 07/01/19 Attend Phys: Alfonzo Marshall MD Discharge: Date of : 46 Report #: [id number] THIS REPORT FOR: //name// CC: Alfonzo Lyon DATE OF SERVICE: 07/03/2019 PROGRESS NOTE AND OVERALL PLAN OF CARE SUBJECTIVE: The patient is seen back today in followup. He is in no distress. Temperature 98.2, pulse 70, respirations 18, and blood pressure 160/70. He continues with the left-sided visual field deficit. He could be easily distractable. He has some difficulty understanding higher level problem solving. Transfers are contact guard sit to stand, min assist bed to chair. Gait is up to 320 feet, has issues with awareness of environment, decreased balance, some lateral sway, left field cut/decreased spatial awareness. Bathing is min assist; dressing upper is mod assist, lower is mod assist. He is on a soft diet with thin liquids. ASSESSMENT: 1. Subacute right parietal cerebrovascular accident. 2. Left-sided neglect and weakness. 3. Gallstone necrotizing pancreatitis with pseudocyst. 4. Acute renal insufficiency on chronic kidney disease, improved. 5. Anemia. 6. Recent ileus. 7. Thrombocytopenia, improved. 8. Coronary artery disease. 9. Hypertension. 10. Hyperlipidemia. PLAN: The overall plan of care is based on the preadmission screen, post-admission physician evaluation, and information garnered from therapy assessments. 1. Estimated length of stay is probably at least 2 weeks. 2. Medical prognosis is reasonably good. 3. Anticipated interventions includes the interdisciplinary acute inpatient rehabilitation program. 4. Anticipated functional outcomes would be for the patient to become modified independent with transfers, mobility, ADLs, cognition and visual perceptual issues that he can return back to the home setting. 5. Discharge destination would be back home with his . 6. Expected therapy by discipline includes PT, OT and speech 1 hour per day [address] [address] REHAB UNIT PLAN OF CARE Name: ALEX FERRER Room #: 515-P ADM IN M.R.#: [id number] Admission: 07/01/19 Attend Phys: Alfonzo Marshall MD Discharge: Date of : 46 Report #: [id number] each five days a week throughout the duration of the acute inpatient rehabilitation stay. <ELECTRONICALLY SIGNED> By: Alfonzo Marshall MD 07/14/19 1039 0943 1304 Alfonzo Marshall MD /nt
--- NOTE | 2019-07-14 13:00 | NUR ---
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 08/04 supervision. no driving until cleared by
--- NOTE | 2019-07-14 16:16 | NUR ---
ASSUMED CARE OF PT AT 0715. PT IS A&OX3-4 AND VITAL SIGNS ARE STABLE. AM ACCU CHECK AND MANAGED WITH PO MEDICITONS. NURSING PROVIDED DIABETES EDUCATION TO PT INCLUDING IDEAL BLOOD GLUCOSE LEVELS, PROCEDURE TO CHECK BLOOD GLUCOSE, S/S OF HYPO/HYPER GLYCEMIA, COMPLICATIONS OF DIABETES, AND WHEN TO SEEK MEDICAL ATTENTION. NURSING WILL CONTINUE TO PROVIDE EDUCATION AND REINFORCE EDUCATION TO PT UNTIL DISCHARGE. MEDICATIONS WHOLE IN APPLESAUCE. DENIES PAIN AND PARTICIPATED IN SCHEDULED THERAPIES. FALL PRECAUTIONS IN PLACE AND NURSING WILL CONTINUE TO MONITOR.
[2019-07-14 19:15] VITALS: BP 131/61
--- NOTE | 2019-07-14 23:34 | NUR ---
PT ASSESSMENT COMPLETED AND VSS. MEDS GIVEN ORDERED AND WELL TOLERATED. FALL PRECAUTIONS IN PLACE. UP TO THE BATHROOM WITH ASST/GAIT. VOIDING LARGE AMOUNT OF YELLOW URINE. SLEEPING WELL. WILL CONTINUE TO MONITOR FREQUENTLY.
--- NOTE | 2019-07-15 10:43 | NUR ---
PATIENT FACESHEET FAXED TO [facility], PER CM REQUESTS. PATIENT INTERESTED IN MEDICAID AND DISABILITY BENEFITS. CALL PLACED TO [facility] TO NOTIFY.
--- NOTE | 2019-07-15 11:21 | NUR ---
ASSUMED CARE OF PT AT 0715. PT IS A&OX4 AND VITAL SIGNS ARE STABLE. PT DENIES PAIN AND IS PARTICIPATING IN SHCHEDULED THERAPIES. NURSING PROVIDING EDUCATION FOR PT AND FAMILY ABOUT DIABETES. FAMILY ASKED BY NURSE TO BRING GLUCOMETER AND SUPPLIES TO UNIT ON 07/16 FOR EDUCATION WITH NURSING PRIOR TO DISCHARGE. FALL PRECAUTIONS IN PLACE AND NURSING WILL CONTINUE TO MONITOR.
--- NOTE | 2019-07-15 15:43 | NUR ---
Nutrition: RD left DM diet materials at bedside with pt/. Dtr would like to be present for education. RD will followup when dtr available.
[2019-07-15 19:47] VITALS: BP 121/69
--- NOTE | 2019-07-16 01:17 | NUR ---
PT ALERT AND ORIENTED X 4. AMB TO BR WITH WALKER AND ASSIST X 1 WITHOUT DIFFICULTY. PT TAKES MEDS IN APPLESAUCE WITHOUT DIFFICULTY. PT DENIES PAIN OR DISCOMFORT. BED ALARM ON FOR SAFETY. PT APPEARS TO BE SLEEPING ON HOURLY ROUNDS.
[2019-07-16 07:30] VITALS: BP 136/77
--- NOTE | 2019-07-16 12:57 | NUR ---
called in pending ref number to [facility] to follow with [facility] to see if will approve [facility] program for after dc home. # [id number], # [id number], call ref # [id number]. [facility] will call pt to let him know if [facility] has given auth.
[2019-07-16] MEDS ORDERED: ELIQUIS5 MG PO (13:04)
[2019-07-16] MEDS ORDERED: PANTOPRAZOLE SO40 M1 PO (13:04)
[2019-07-16] MEDS ORDERED: METFORMIN HCL500 MG PO (13:04)
--- NOTE | 2019-07-16 16:33 | NUR ---
FAXED REFERRAL TO [facility] SPOKE WITH JAKY IN INTAKE SHE RECEIVED REFERRAL [place] ANTICIPATE DC TOMORROW 07/17.
[2019-07-16 16:34] VITALS: BP 136/77
--- NOTE | 2019-07-16 17:23 | NUR ---
ASSUMED CARE OF PT AT 0715. PT IS A&OX4 AND VITAL SIGNS ARE STABLE. PT DENIES PAIN AND PARTICIPATED IN SCHEDULED THERAPIES. ORDERS TO MAKE PT MOD I IN ROOM DURING DAY. FAMILY DID NOT BRING GLUCOMETER OR SUPPLIES IN TODAY, NURSING WILL PASS MESSAGE TO FOLLOWING SHIFT TO HAVE PT PRACTICE ON SUPPLIES PRIOR TO DISCHARGE TOMORROW. FALL PRECAUTIONS IN PLACE AND NURSING WILL CONTINUE TO MONITOR.
[2019-07-16 20:15] VITALS: BP 125/60
--- NOTE | 2019-07-17 01:44 | NUR ---
PT ALERT AND ORIENTED X 4. AMB TO BR WITH WALKER AND ASSIST X 1 WITHOUT DIFFICULTY. PT TOOK HS MEDS IN APPLESAUCE WITHOUT DIFFICULTY. PT DENIES PAIN OR DISCOMFORT. BED ALARM ON FOR SAFETY. PT APPEARS TO BE SLEEPING ON HOURLY ROUNDS.
[2019-07-17 08:00] VITALS: BP 149/78
--- NOTE | 2019-07-17 08:40 | NUR ---
ASSUMED CARE OF PT AT 0715. HAS TEMP 102.8, PRN TYLENOL GIVEN. REPORTS SLEPT GOOD. PT IS A&OX4. FORGETFUL AT TIME. PT DENIES ORDERS TO MAKE PT MOD I IN ROOM DURING DAY. ENCOURAGE FAMILY TO BRING GLUCOSE MACHINE TO NURSING WILL PASS MESSAGE TO FOLLOWING SHIFT TO HAVE PT PRACTICE ON SUPPLIES PRIOR TO DISCHARGE. FAMILY WILL PICK PT UP AROUND NOON. OFFERED SUPPORTIVE CARE. ENCOURAGED PT TO VOICE HIS NEEDS AND CALL NEED. CHECK FREQUENTLY FOR SAFETY AND NEEDS. WILL CONTINUE TO MONITOR TEMP.
--- NOTE | 2019-07-21 10:53 | NUR ---
phone call today from geovanni baca asked if short term disability paper work was completed and faxed back to [phone], they have to get it before tomorrow "/geovanni. cm passed on information to hall porter, packet left to be filled out.
== END 2019-07-17 15:14 | disposition home health service (06) | DRG 56 ==
LOC: ENTRNSPT 07-17 14:58 → EDTRNSPTSTS 07-17 15:01
PROVIDERS: Nurse Practitioner; ADMIT Physical Medicine & Rehabilitation
DX: I69.354 Hemiplegia and hemiparesis following cerebral infarction affecting left non-dominant side (principal); I63.9 Cerebral infarction, unspecified; K85.90 Acute pancreatitis without necrosis or infection, unspecified; A41.9 Sepsis, unspecified organism; K85.10 Biliary acute pancreatitis without necrosis or infection; J96.01 Acute respiratory failure with hypoxia; K65.9 Peritonitis, unspecified; N17.9 Acute kidney failure, unspecified; E87.2 Acidosis; K86.3 Pseudocyst of pancreas; K56.7 Ileus, unspecified; R18.8 Other ascites; E07.81 Sick-euthyroid syndrome; E78.5 Hyperlipidemia, unspecified; E11.22 Type 2 diabetes mellitus with diabetic chronic kidney disease; D64.9 Anemia, unspecified; I25.10 Atherosclerotic heart disease of native coronary artery without angina pectoris; I12.9 Hypertensive chronic kidney disease with stage 1 through stage 4 chronic kidney disease, or unspecified chronic kidney disease; D69.6 Thrombocytopenia, unspecified; E03.9 Hypothyroidism, unspecified; E11.65 Type 2 diabetes mellitus with hyperglycemia; I48.0 Paroxysmal atrial fibrillation; Z53.29 Procedure and treatment not carried out because of patient's decision for other reasons; F01.50 Vascular dementia, unspecified severity, without behavioral disturbance, psychotic disturbance, mood disturbance, and anxiety; F43.23 Adjustment disorder with mixed anxiety and depressed mood; E87.6 Hypokalemia; E83.42 Hypomagnesemia; M10.071 Idiopathic gout, right ankle and foot; Z79.899 Other long term (current) drug therapy; Z79.02 Long term (current) use of antithrombotics/antiplatelets; Z79.01 Long term (current) use of anticoagulants; Z79.82 Long term (current) use of aspirin; Z95.0 Presence of cardiac pacemaker; Z95.5 Presence of coronary angioplasty implant and graft; Z79.84 Long term (current) use of oral hypoglycemic drugs
CPT/HCPCS: 10112